=== PATIENT | female | born 1940 | race Caucasian/White ===

== ENCOUNTER → 2020-02-04 10:07 | Outpatient (CLI) | payer MEDICARE, BC, SELFPAY ==
--- NOTE | 2020-02-04 10:13 | CA_ITS ---
APPROVED REPORT Faucets Assembler: Kanika Ziegler RVT Laterality: Bilateral Study Quality: Good Indications: DIZZINESS Risk Factors Hypertension: Doppler Spectral Velocity Analysis ECA (R) 118.10/10.30 cm/s ECA (L) 100.00/9.30 cm/s dICA (R) 56.50/9.60 cm/s dICA (L) 88.60/26.30 cm/s Sukh (R) 39.80/9.00 cm/s Sukh (L) 81.50/16.70 cm/s pICA (R) 69.40/6.90 cm/s pICA (L) 77.70/18.00 cm/s dCCA (R) 97.30/7.50 cm/s dCCA (L) 59.10/13.50 cm/s pCCA (R) 120.80/8.60 cm/s pCCA (L) 90.50/10.30 cm/s Vert (R) 40.50/3.90 cm/s Vert (L) 73.90/20.00 cm/s ICA/CCA 0.71 ICA/CCA 1.50 Findings Study suggests less than 20% stenosis of the right internal cartoid artery. Study suggests 20-49% stenosis of the left internal cartoid artery. Antegrade flow seen bilateral vertebral arteries. Conclusion Study suggests less than 20% stenosis of the right internal cartoid artery. Study suggests 20-49% stenosis of the left internal cartoid artery. Antegrade flow seen bilateral vertebral arteries. Electronically signed by : Frederic Carbone MD 02/04/2020 15:48:07
== END ==
PROVIDERS: PCP Family Medicine; Visit Provider Nurse Practitioner Family
DX: R42 Dizziness and giddiness (principal)
CPT/HCPCS: 93880

== ENCOUNTER → 2020-04-10 14:29 | Outpatient (CLI) | payer MEDICARE, BC, SELFPAY ==
--- NOTE | 2020-04-10 14:34 | XR_ITS ---
PROCEDURE: XR KNEE RT 3V CLINICAL INDICATION: RT KNEE EFFUSION,RT KNEE PAIN COMPARISON: No exams were available for comparison FINDINGS: No fracture or dislocation. No lytic or blastic change. There is normal mineralization. Osteoarthritic changes are present involving all 3 compartments greatest at the patellofemoral joint. Small suprapatellar effusion also suspected. Small bone island noted in the distal femur medially Other findings:None. IMPRESSION: Mild osteoarthritis with small knee joint effusion Dictated by: Frederic Carbone MD 04/11/2020 09:23 Frederic Carbone MD in [place] 04/11/2020 09:23
== END ==
PROVIDERS: PCP Nurse Practitioner Family; Visit Provider Nurse Practitioner Family
DX: M25.561 Pain in right knee (principal); M25.461 Effusion, right knee
CPT/HCPCS: 73562

== ENCOUNTER → 2020-06-08 07:46 | Outpatient (CLI) | payer MEDICARE, BC, SELFPAY ==
--- NOTE | 2020-06-08 | CA_ITS ---
APPROVED REPORT First Assistant Manager: ILIR Study Quality: Good Risk Factors Hypertension Renal Artery Doppler Origin (R) 186.5/ cm/sec Proximal (R) 283.3/ cm/sec Mid (R) 170.5/ cm/sec Distal (R) 183.5/ cm/sec Renal Aorta Ratio (R) 3.25 Segmental A. (R) / cm/sec RI: 0.78 Origin (L) 181.2/ cm/sec Mid (L) 223.0/ cm/sec Distal (L) 163.7/ cm/sec Renal Aorta Ratio (L) 2.87 Segmental A. (L) / cm/sec RI: 0.81 Findings The proximal abdominal aorta is patent without significant stenoses or dilatations. Duplex evaluation demonstrates greater than 60% stenosis of the right renal artery with PSV greater than 180 cm/s and/or Renal/Aortic ratio (RAR) greater than 3.5. Duplex evaluation demonstrates greater than 60% stenosis of the left renal artery with PSV greater than 180 cm/s and/or Renal/Aortic ratio (RAR) greater than 3.5. Conclusion The proximal abdominal aorta is patent without significant stenoses or dilatations. Duplex evaluation demonstrates greater than 60% stenosis of the right renal artery with PSV greater than 180 cm/s and/or Renal/Aortic ratio (RAR) greater than 3.5. Duplex evaluation demonstrates greater than 60% stenosis of the left renal artery with PSV greater than 180 cm/s and/or Renal/Aortic ratio (RAR) greater than 3.5. Electronically signed by : Frederic Carbone MD 06/08/2020 17:33:10
== END ==
PROVIDERS: PCP Nurse Practitioner Family; Visit Provider Nurse Practitioner Family
DX: I10 Essential (primary) hypertension (principal)
CPT/HCPCS: 93976

== ENCOUNTER → 2020-08-22 10:50 | Outpatient (CLI) | payer MEDICARE, BC, SELFPAY | PROVIDERS: PCP Nurse Practitioner Family; Visit Provider Nurse Practitioner Family | DX: Z20.822 Contact with and (suspected) exposure to COVID-19 (principal) | CPT/HCPCS: U0003 ==

== ENCOUNTER → 2020-08-29 09:19 | Outpatient (CLI) | payer MEDICARE, BC, SELFPAY | PROVIDERS: PCP Nurse Practitioner Family; Visit Provider Internal Medicine Cardiovascular Disease | DX: Z01.812 Encounter for preprocedural laboratory examination (principal); Z20.822 Contact with and (suspected) exposure to COVID-19 | CPT/HCPCS: U0003 ==

== ENCOUNTER → 2021-03-12 10:19 | Outpatient (CLI) | payer MEDICARE, BC, SELFPAY | PROVIDERS: PCP Nurse Practitioner Family; Visit Provider Nurse Practitioner | DX: Z20.822 Contact with and (suspected) exposure to COVID-19 (principal) | CPT/HCPCS: C9803; U0003; U0005 ==

== ENCOUNTER → 2021-04-02 12:21 | Outpatient (CLI) | payer MEDICARE, BC, SELFPAY | PROVIDERS: PCP Nurse Practitioner Family; Visit Provider Nurse Practitioner | DX: Z20.822 Contact with and (suspected) exposure to COVID-19 (principal) | CPT/HCPCS: C9803; U0003; U0005 ==

== ENCOUNTER → 2021-05-07 09:58 | Outpatient (CLI) | payer MEDICARE, BC, SELFPAY ==
[2021-05-08 10:36] LABS: Covid-19 Nasal PCR Sendout Lex NOT DETECTED
== END ==
PROVIDERS: PCP Nurse Practitioner Family; Visit Provider Nurse Practitioner
DX: Z20.822 Contact with and (suspected) exposure to COVID-19 (principal)
CPT/HCPCS: C9803; U0004; U0005

== ENCOUNTER → 2021-09-03 11:18 | Outpatient (CLI) | payer MEDICARE, BC, SELFPAY ==
--- NOTE | 2021-09-03 11:23 | XR_ITS ---
FINAL REPORT CLINICAL HISTORY: ACUTE BILATERAL LOW BACK PAIN WITHOUT SCIATICA FINDINGS: 5 views of the lumbar spine were obtained. There is no evidence of fracture or dislocation. There is mild anterolisthesis of L4 on L5. There is moderate degenerative change. There is facet arthropathy in the lower lumbar spine. There is vacuum disc phenomenon at several levels. There are moderate vascular calcifications. IMPRESSION: Degenerative change as above. Reviewed, Interpreted and Dictated by Corey Panda III, MD Transcribed by Ciera Jenkins Authenticated and . [facility]
== END ==
PROVIDERS: PCP Nurse Practitioner Family; Visit Provider Nurse Practitioner Family
DX: M54.50 Low back pain, unspecified (principal)
CPT/HCPCS: 72110

== ENCOUNTER → 2021-09-13 09:41 | Outpatient (CLI) | payer MEDICARE, BC, SELFPAY ==
--- NOTE | 2021-09-13 09:54 | MR_ITS ---
FINAL REPORT CLINICAL HISTORY: LUMBAR DEGENERATIVE DISC DISEASE LOWER BACK PAIN X 4-5 DAYS NO RECENT INJURY FINDINGS: Multiplanar MR imaging of the lumbar spine was performed without contrast. On the sagittal T2-weighted images, disc degeneration is seen throughout. There is mild anterolisthesis of L4 on L5. There is endplate change at several levels. There is no evidence of fracture. No bony mass is identified. The conus has an unremarkable appearance. No significant canal stenosis is identified. There are small cysts in the sacral spinal canal. T12-L1: There is an annular bulge with vertebral osteophytes. There is mild bilateral neural foraminal narrowing. L1-2: An annular bulge is present. There is mild bilateral neural foraminal narrowing. L2-3: There is an annular bulge, facet arthropathy and vertebral osteophytes. There is moderate bilateral neural foraminal narrowing. L3-4: There is an annular bulge with facet arthropathy. There is a small left foraminal disc protrusion. There is mild bilateral neural foraminal narrowing. L4-5: There is an annular bulge, facet arthropathy and vertebral osteophytes. There is a small central disc protrusion. There is a right posterolateral disc protrusion. There is moderate right and mild left neural foraminal narrowing. L5-S1: There is an annular bulge and facet arthropathy. There is mild left neural foraminal narrowing. There is a 5 mm synovial cyst extending anteriorly from the left facet joint into the left neural foramen contacting the left L5 nerve root. This is best seen on series 5, image 48. IMPRESSION: Disc protrusions at L3-L4 and L4-L5 without significant central canal stenosis. Synovial cyst extending anteriorly from the left facet joint at L5-S1 contacts the left L5 nerve root within the left neural foramen. Multiple other levels of degenerative disc disease and neural foraminal narrowing. Reviewed, Interpreted and Dictated by Corey Panda III, MD Transcribed by Celso Goldstein Authenticated and [facility]
== END ==
PROVIDERS: PCP Nurse Practitioner Family; Visit Provider Nurse Practitioner Family
DX: M51.36 Other intervertebral disc degeneration, lumbar region (principal); R93.7 Abnormal findings on diagnostic imaging of other parts of musculoskeletal system
CPT/HCPCS: 72148; 76376

== ENCOUNTER → 2022-01-22 09:39 | Outpatient (POV) | payer MEDICARE, BC, SELFPAY | PROVIDERS: Visit Provider Dermatology | DX: Z00.00 Encounter for general adult medical examination without abnormal findings (principal) ==

== ENCOUNTER → 2022-06-13 14:10 | Outpatient (CLI) | payer MEDICARE, BC, SELFPAY ==
--- NOTE | 2022-06-13 14:14 | CA_ITS ---
FINAL REPORT TECHNIQUE: Color Doppler, duplex Doppler and shetty scale sonography of the bilateral neck arterial vasculature was performed. Velocities were measured in the carotid arteries. Stenosis evaluation based on the validated velocity criteria. CLINICAL HISTORY: DIZZINESS,HTN,HLD FINDINGS: The peak systolic velocity of the right common carotid artery is 166 cm/s. The peak systolic velocity of the right internal carotid artery is 81 cm/s and end diastolic velocity 13 cm/s. The ICA/CCA ratio is 0.49. A mild amount of plaque is present. The right external carotid artery is patent. The right vertebral artery is patent with antegrade flow. The peak systolic velocity of the left common carotid artery is 73 cm/s. The peak systolic velocity of the left internal carotid artery is 85 cm/s and end diastolic velocity 19 cm/s. The ICA/CCA ratio is 1.2. A mild amount of plaque is present. The left external carotid artery is patent.The left vertebral artery is patent with antegrade flow. IMPRESSION: Less than 50% bilateral carotid stenosis. Bilateral patent vertebral arteries with antegrade flow. If indicated, CTA or MRA could further evaluate. Reviewed, Interpreted and Dictated by Corey Panda III, MD Transcribed by Ciera Jenkins Authenticated and . [facility]
== END ==
PROVIDERS: PCP Nurse Practitioner Family; Visit Provider Nurse Practitioner Family
DX: R42 Dizziness and giddiness (principal)
CPT/HCPCS: 93880

== ENCOUNTER 2022-11-30 07:59 | Inpatient (IN) | payer MEDICARE, BC, SELFPAY ==
[2022-11-30] VITALS (16 sets, daily range): BP systolic 112–180; BP diastolic 66–104; PULSE 96–157; RESP 16–22; TEMP 36.6–36.9; O2SAT 91–96; BMI 33.7; BMI 33.5
--- NOTE | 2022-11-30 08:07 | PC.NURSE ---
dr sierra at bedside
--- NOTE | 2022-11-30 08:08 | ECG_ITS ---
APPROVED REPORT Exam: Resting ECG HR:161 bpm ECG Measurements Heart Rate 161 AXES QRSd 141 QRS 87 QT 264 T 17 QTc 353 Conclusion ATRIAL FIBRILLATION WITH RAPID VENTRICULAR RESPONSE RIGHT BUNDLE BRANCH BLOCK [120+ ms QRS DURATION, UPRIGHT V1, 40+ ms S IN I/aVL/V4/V5/V6] SEPTAL MYOCARDIAL INFARCTION , OF INDETERMINATE AGE [40+ ms Q WAVE IN V1/V2] CRITICAL TEST RESULT UNCONFIRMED REPORT Electronically signed by : Vlad García MD 12/02/2022 15:54:20
--- NOTE | 2022-11-30 08:10 | XR_ITS ---
PROCEDURE INFORMATION: Exam: XR Chest Exam date and time: 11/30/2022 8:11 AM Age: 82 years old Clinical indication: Shortness of breath; Additional info: SOB TECHNIQUE: Imaging protocol: Radiologic exam of the chest. Views: 1 view. COMPARISON: CR XR CHEST 2V 12/02/2018 6:18 PM FINDINGS: Lungs: Mild Opacities in both bases may represent atelectasis or pneumonia.. Pleural spaces: Unremarkable. No pleural effusion. No pneumothorax. Heart/Mediastinum: Unremarkable. No cardiomegaly. Bones/joints: Unremarkable. IMPRESSION: Mild Opacities in both bases may represent atelectasis or pneumonia..
--- NOTE | 2022-11-30 08:12 | HMH.EDGENADL ---
Discharge Plan Disposition Patient Disposition: Admitted Condition: Fair Chief Complaint: Shortness of Breath/Dyspnea Prescriptions Prescriptions: No Action carvedilol 12.5 MG tablet 12.5 mg PO BID amlodipine 5 MG tablet 5 mg PO DAILY rivaroxaban 20 MG tablet 20 mg PO DAILY Referrals Follow up/Referrals: Hina Evans APRN [Primary Care Provider] - See instructions Clinical Impressions Clinical Impression: Atrial fibrillation with rapid ventricular response, Acute dyspnea Discharge ED Provider: Martín Harry General Adult HPI General Chief complaint: Shortness of Breath/Dyspnea Stated complaint: SOA Time Seen by Provider: 11/30/22 08:00 History of Present Illness HPI narrative: Patient is a 82-year-old female with past medical history of atrial fibrillation who presents emergency department for evaluation of shortness of breath. Patient states that she has had progressive shortness of breath over the last 1 to 2 weeks. Over the last week she was diagnosed with a urinary tract infection for which she was prescribed Macrobid and has been compliant. Patient typically takes metoprolol daily, last administration yesterday afternoon. Patient did not rest at all last night and due to progressive symptoms presents here for continued evaluation. Patient was recently discontinued on her rivaroxaban due to bleeding hemorrhoids. Patient denies chest pain, abdominal pain, other acute complaints at this time. Related Data Home Medications Medication Instructions Recorded Confirmed amlodipine 5 mg tablet 5 mg PO DAILY heart 12/02/18 12/02/18 carvedilol 12.5 mg tablet 12.5 mg PO BID heart 12/02/18 12/02/18 rivaroxaban 20 mg tablet 20 mg PO DAILY afib 12/02/18 12/02/18 Allergies Allergy/AdvReac Type Severity Reaction Status Date / Time No Known Allergies Allergy Verified 12/02/18 18:02 [facility] Disclaimer: The information contained in this section may have been updated after the patient was seen, as this information can be updated by other users. Social History Smoking Status: Never smoker alcohol intake: never current occupational status: retired Travel in the last 8 weeks: None ROS Obtained: Yes Systems reviewed as appropriate & no additional complaints except as documented Physical Exam General General appearance: alert and in distress Head Head exam: atraumatic and normocephalic Eye Eye exam: Present PERRL and EOMI ENT ENT exam: Present mucous membranes moist Neck Neck exam: Present normal inspection Chest Chest inspection: Present normal inspection and symmetric chest wall rise Respiratory Respiratory exam: Present normal lung sounds bilaterally, respiratory distress and other (Tachypnea) Cardiovascular Cardiovascular exam: Present tachycardia, irregular rhythm and other (1+ pitting edema bilateral lower extremities mid milner) Abdominal Exam Abdominal exam: Present soft; Absent tenderness Extremities Exam Extremities exam: Present normal inspection Neurological Exam Neurological exam: Present alert Psychiatric Psychiatric exam: Present anxious Skin Skin exam: Present warm and dry Medical Decision Making Luis Fernando Inquiry Pt receiving controlled substance: No Vital Signs: 11/30/22 08:00 11/30/22 08:22 Temperature 98.0 F Temperature Source Oral Pulse Rate 108 H Pulse Rate [Apical] 157 H Respiratory Rate 22 Blood Pressure 135/66 Blood Pressure [Right Arm] 180/90 H Blood Pressure Mean 89 Blood Pressure Mean [Right Arm] 120 Blood Pressure Source [Right Arm] Manual Cuff/ Palpation Blood Pressure Position [Right Arm] Sitting 02 Sat by Pulse Oximetry 93 L 96 Oxygen Delivery Method Room Air Nasal Cannula Oxygen Flow Rate (LPM) 2 Lab Data Lab Results 11/30/22 08:09: WBC 13.2 H, RBC 5.08, Hgb 14.6, Hct 45.1, MCV 88.8, MCH 28.7, MCHC 32.3, RDW 14.2, Plt Count 300, MPV 8.8, Neut % (Auto) 73.1, Lymph % (Auto) 19.4, [place] % (Auto) 6.
--- NOTE | 2022-11-30 08:14 | PC.NURSE ---
PHARMACY NOTIFIED OF DILTIAZEM ORDERS
--- NOTE | 2022-11-30 08:16 | PC.NURSE ---
XR AT BEDSIDE
[2022-11-30 08:25] LABS: Basophils # 0.1 K/mm3 (0-0.2); Basophils % 0.4 % (0.1-2.0); Eosinophils # 0.1 K/mm3 (0.0-0.4); Eosinophils % 0.9 % (0.1-12.0); Hematocrit 45.1 % (37.0-47.0); Hemoglobin 14.6 g/dL (12.2-16.2); Lymphocytes # 2.6 K/mm3 (0.7-4.5); Lymphocytes % 19.4 % (10-50); Mean Corpuscular HGB Conc 32.3 g/dL (31.8-35.4); Mean Corpuscular Hemoglobin 28.7 pg (27.0-31.2); Mean Corpuscular Volume 88.8 fl (81-99); Mean Platelet Volume 8.8 fl (7.4-10.4); Monocytes # 0.8 K/mm3 (0.1-1.0); Monocytes % 6.1 % (1.7-9.3); Neutrophils # 9.7 K/mm3 (1.8-7.8); Neutrophils % 73.1 % (37.0-80.0); Platelet Count 300 K/mm3 (142-424); Red Blood Count 5.08 M/mm3 (4.20-5.40); Red Cell Distribution Width 14.2 % (11.5-17.5); White Blood Count 13.2 K/mm3 (4.8-10.8)
[2022-11-30 08:29] LABS: Alanine Aminotransferase 46 U/L (12-78); Albumin Level 4.4 g/dl (3.5-5.0); Albumin/Globulin Ratio 1.1 (1.1-1.8); Alkaline Phosphatase 134 U/L (38-126); Anion Gap 16.4 mEq/L (5-15); Aspartate Amino Transferase 44 U/L (14-36); Bilirubin,Total 0.8 mg/dl (0.2-1.3); Blood Urea Nitrogen 19 mg/dl (7-17); Calcium 9.5 mg/dl (8.4-10.2); Carbon Dioxide 24 mmol/L (22.0-30.0); Chloride 99 mmol/L (98-107); Creatinine Clearance Estimated 56 mL/min (50-200); Estimated Glomerular Filt Rate 60 ml/min (>60); GFR (African American) 73 ML/MIN (>60); Globulin 3.9 g/dL (1.3-3.2); Glucose 176 mg/dl (74-100); Potassium 3.4 mmoL/L (3.5-5.1); Sodium 136 mmol/L (136-145); Total Protein,Serum 8.3 g/dl (6.3-8.2)
--- NOTE | 2022-11-30 08:29 | PC.NURSE ---
SPOKE WITH DR PATIÑO, TITRATE TO KEEP HR LESS THAN 110, CURRENTLY HR 100
[2022-11-30 08:30] LABS: Magnesium 1.8 mg/dl (1.6-2.3)
[2022-11-30 08:32] LABS: VBG Base Excess -3.4 mmol/L (-2.4-2.3); VBG HCO3 21.8 mmol/L (23-30); VBG Oxygen Saturation 82.7 % (50-70); VBG PCO2 38.2 mmol/L (35-51); VBG PH 7.38 mmol/L (7.31-7.41); VBG PO2 49.1 mmol/L (28-40)
[2022-11-30 08:47] LABS: NT Pro Brain Natriuretic Pep. 2710 pg/mL (0-450)
--- NOTE | 2022-11-30 08:49 | PC.NURSE ---
VERIFIED WITH OZZY IN PHARMACY, ROCEPHIN IS COMPATIBLE WITH DILTIAZEM
[2022-11-30 08:52] LABS: Troponin I < 0.01 ng/ml (0.00-0.034)
--- NOTE | 2022-11-30 08:54 | PC.NURSE ---
DR JIM PAGED AT THIS TIME
[2022-11-30 08:57] LABS: Lactic Acid 2.8 mmol/L (0.7-2.1)
--- NOTE | 2022-11-30 09:00 | PC.NURSE ---
DR PATIÑO SPEAKING WITH DR JIM
--- NOTE | 2022-11-30 09:03 | PC.NURSE ---
DR PATIÑO SPEAKING WITH DR BUTLER FOR ADMISSION
--- NOTE | 2022-11-30 09:05 | EXP.HP ---
History of Present Illness *Admission Date: 11/30/22 *Reason for visit:: shortness of breath *History of present illness: Ms. Girard is a 82 year old female with a past medical history of atrial fibrillation, hypertension and obesity who presented to the ED with 1 week of shortness of breath. In the ER she was found to be in afib with RVR with HR 150-170. Cardizem drip was started but then changed to Amiodarone drip after Cardiology was contacted. Her Precision Assembler is Dr. Arpit Rose at [facility]. She was taking both metoprolol and diltiazem but two weeks ago her diltiazem was discontinued and the dose of her metoprolol was not changed. She states that her Xarelto was discontinued 2 days ago because she had hemorrhoidal bleeding. She denies cough, chest pain, palpitations, lightheadedness, blurry vision, fever, chills, abdominal pain, nausea, vomiting and dysuria. [facility] Disclaimer: The information contained in this section may have been updated after the patient was seen, as this information can be updated by other users. Medical History (Updated 11/30/22 @ 13:21 by Isai Torres MD) Afib Hyperlipidemia Hypertension Surgical History (Updated 11/30/22 @ 13:06 by Bel Savage RN) H/O: hysterectomy History of colon surgery Hx of cataract surgery Social History (Updated 11/30/22 @ 13:06 by Bel Savage RN) Smoking Status: Never smoker alcohol intake: never current occupational status: retired Travel in the last 8 weeks: None Review of Systems Review of Systems Review of systems:: pertinent systems reviewed and negative unless documented below *Cardiovascular Cardiovascular: Reports dyspnea *Respiratory Respiratory: Reports dyspnea *Gastrointestinal Gastrointestinal: Reports hematochezia Meds Home Medications and Allergies Home Medications Medication Instructions Recorded Confirmed Type hydrochlorothiazide 12.5 mg capsule 12.5 mg PO DAILY Fluid 11/30/22 11/30/22 History metoprolol succinate 100 mg 100 mg PO DAILY heart rate 11/30/22 11/30/22 History tablet,extended release 24 hr nitrofurantoin macrocrystal 100 mg 100 mg PO DAILY antibiotic 11/30/22 11/30/22 History capsule pravastatin 20 mg tablet 20 mg PO DAILY cholsterol 11/30/22 11/30/22 History New Prescriptions to Start Prescriptions: Allergies Allergy/AdvReac Type Severity Reaction Status Date / Time No Known Allergies Allergy Verified 12/02/18 18:02 Exam Data for Last 24 hours Vital signs and Labs for Last 24 Hours: Temp Pulse Resp BP Pulse Ox O2 Del Method O2 Flow Rate 98.0 F 108 H 22 135/66 96 Nasal Cannula 2 11/30/22 08:00 11/30/22 08:22 11/30/22 08:00 11/30/22 08:22 11/30/22 08:22 11/30/22 08:22 11/30/22 08:22 Laboratory Results - last 24 hr 11/30/22 08:09: WBC 13.2 H, RBC 5.08, Hgb 14.6, Hct 45.1, MCV 88.8, MCH 28.7, MCHC 32.3, RDW 14.2, Plt Count 300, MPV 8.8, Neut % (Auto) 73.1, Lymph % (Auto) 19.4, [place] % (Auto) 6.1, Eos % (Auto) 0.9, Baso % (Auto) 0.4, Neut # (Auto) 9.7 H, Lymph # (Auto) 2.6, [place] # (Auto) 0.8, Eos # (Auto) 0.1, Baso # (Auto) 0.1, Sodium 136, Potassium 3.4 L, Chloride 99, Carbon Dioxide 24, Anion Gap 16.4 H, BUN 19 H, Creatinine 0.90, Estimated Creat Clear 56, Estimated GFR 60, Est GFR ( Amer) 73, Glucose 176 H, Lactate 2.8 H, Calcium 9.5, Magnesium 1.8, Total Bilirubin 0.8, AST 44 H, ALT 46, Alkaline Phosphatase 134 H, Troponin I < 0.01, NT-Pro-B Natriuret Pep 2710 H, Total Protein 8.3 H, Albumin 4.4, Globulin 3.9 H, Albumin/Globulin Ratio 1.1 11/30/22 08:23: VBG pH 7.38, VBG pCO2 38.2, VBG pO2 49.1 H, VBG HCO3 21.8 L, VBG Total CO2 23.0, VBG O2 Saturation 82.7 H, VBG Base Excess -3.4 L I & O for Last 24 hours: Intake & Output 11/27/22 11/28/22 11/29/22 11/30/22 23:59 23:59 23:59 23:59 Weight 78.471 kg Constitutional Constitutional: no acute distress *Routine HEENT Exam Head: Present normocephalic Eye: Present EOMI and PERRL ENT: Pres
--- NOTE | 2022-11-30 09:05 | PC.NURSE ---
ROLL MACHINE OPERATOR NOTIFIED OF ADMISSION
--- NOTE | 2022-11-30 09:11 | PC.NURSE ---
Pt assigned to room 219, Stepdown for AFIB w/RVR to the hospitalist.
--- NOTE | 2022-11-30 09:11 | PC.NURSE ---
PT MEDICATED PER EMAR, UPDATED ON POC. NO NEEDS AT THIS TIME. CALL LIGHT IN REACH. AT BEDSIDE
[2022-11-30 09:14] LABS: Coronavirus 19, PCR Not Detected (NotDetected); Influenza A, PCR Not Detected (NotDetected); Influenza B, PCR Not Detected (NotDetected)
--- NOTE | 2022-11-30 09:20 | PC.NURSE ---
Dr. Harry at BS to update pt/
--- NOTE | 2022-11-30 09:20 | PC.NURSE ---
DR PATIÑO AT BEDSIDE TO UPDATE PT
--- NOTE | 2022-11-30 09:36 | PC.NURSE ---
charge nurse Nikita is taking pt via stretcher to [facility] room 219
--- NOTE | 2022-11-30 09:41 | PC.NURSE ---
arrived by w/c from ED
[2022-11-30 12:17] LABS: Reflex Lactic Add Lactic Reflex
[2022-11-30 12:24] LABS: Troponin I < 0.01 ng/ml (0.00-0.034)
[2022-11-30 14:56] LABS: Lactic Acid Follow Up (RFLX 1) 1.3 mmol/L (0.7-2.1)
--- NOTE | 2022-11-30 15:01 | PC.NURSE ---
[address] spencer, pt requesting med for headache. 1115 admin pt tylenol. ordered 1000mg dose. pt states that she only wants to take 1 tablet. states that when she takes that much at home it makes her really sleepy. notified.
[2022-11-30 15:07] LABS: Troponin I < 0.01 ng/ml (0.00-0.034)
[2022-11-30 16:09] LABS: Microscopic, Urine URINE MICROSCOPIC (MICROSCOPIC)
[2022-11-30 17:01] LABS: Appearance,Urine Clear (Clear); Bilirubin,Urine Negative (Negative); Blood, Urine Negative (Negative); Color,Urine Yellow (Yellow); Glucose,Urine (UA) Negative (Negative); Ketones,Urine Negative (Negative); Leukocyte Esterase,Urine Trace (Negative); Nitrate,Urine Negative (Negative); Protein,Urine Negative (Negative); Urobilinogen,Urine 0.2 EU/dl (0.2)
--- NOTE | 2022-11-30 17:37 | PC.NURSE ---
notified dr Torres at this time that pt ambulated to the restroom and has since had a hr in that 120-140 range. pt is also hypertensive. initially upon return to bed her bp was 195/112. pt was soa and anxious. pt was able to calm herself and bp decreased to the 160's sys range. states he will order metoprolol 50 tartrate
--- NOTE | 2022-11-30 17:59 | PC.NURSE ---
184 amiodarone drip decreased to 16.7 ml per order
--- NOTE | 2022-11-30 23:27 | CT_ITS ---
PROCEDURE INFORMATION: Exam: CTA Chest With Contrast Exam date and time: 12/01/2022 12:17 AM Age: 82 years old Clinical indication: Shortness of breath; Additional info: SOB TECHNIQUE: Imaging protocol: Computed tomographic angiography of the chest with contrast. Exam focused on the arteries. 3D rendering (Not supervised by radiologist): MIP and/or 3D reconstructed images were created by the technologist. Radiation optimization: All CT scans at this facility use at least one of these dose optimization techniques: automated exposure control; mA and/or kV adjustment per patient size (includes targeted exams where dose is matched to clinical indication); or iterative reconstruction. Contrast material: ISOVUE; Contrast volume: 70 ml; Contrast route: INTRAVENOUS (IV); REPORTING DATA: Count of CT and Cardiac NM exams in prior 12 months: This patient has received 0 known CTs and 0 known cardiac nuclear medicine studies in the 12 months prior to the current study. COMPARISON: CR XR CHEST PORTABLE 11/30/2022 8:11 AM FINDINGS: Pulmonary arteries: No central or segmental pulmonary arterial intraluminal filling identified. Aorta: Atherosclerotic calcification of thoracic aorta. No aortic dissection. No aortic aneurysm. Lungs: Compressive subsegmental atelectasis. Scattered calcified perihilar and mediastinal lymph nodes without lymphadenopathy. Interstitial prominence with pulmonary vasculature redistribution. Pleural spaces: Moderate bilateral pleural effusions. Heart: Unremarkable. No cardiomegaly. No pericardial effusion. Coronary arteries: Mild atherosclerotic calcification of coronary arteries. Lymph nodes: Scattered calcified mediastinal and perihilar lymph nodes without lymphadenopathy. Liver: Fatty liver infiltration. Bones/joints: Unremarkable. No acute fracture. Soft tissues: Unremarkable. IMPRESSION: 1. No central or segmental pulmonary embolism by CT criteria. 2. Bilateral pleural effusions with pulmonary vasculature redistribution suspicious for sequela of pulmonary edema/CHF. 3. Fatty liver infiltration.
[2022-12-01] VITALS (22 sets, daily range): BP systolic 128–174; BP diastolic 68–107; PULSE 86–139; RESP 15–29; TEMP 36.2–36.8; O2SAT 91–99; BMI 34.7
--- NOTE | 2022-12-01 01:05 | PC.NURSE ---
AT APPROX. 2315 PT'S IV THAT HAD THE AMIO DRIP INFILTRATED. INFUSION SWITCHED TO SECONDARY IV AT THAT TIME AND INFILTRATED IV WAS PULLED AND WRAPPED. MYNOR SHAW CALLED ON LICENSE OF [facility] ON RECOMMENDATIONS FOR INFILTRATION. KANDY WITH PHARMACY STATED THAT THE INFILTRATION SHOULD BE FINE AND TO DO WARM COMPRESSES AND ELEVATE EFFECTED EXTREMITY.
--- NOTE | 2022-12-01 02:06 | PC.NURSE ---
rapid response called on pt. called at 0155 and updated on pt status. son called at 0203 and updated on pt states.
[2022-12-01 02:11] LABS: ABG Base Excess -5.5 mmol/L (-2.4-2.3); ABG HCO3 19.3 mmhg (22.0-26.0); ABG Oxygen Saturation 99 % (90-100); ABG PCO2 31.7 mmhg (35.0-45.0); ABG PO2 133.1 mmhg (80-100); ABG TCO2 20.3 mmhg (23-27)
[2022-12-01 02:12] LABS: Allen's Test Y; Oxygen 50 %; Source Right Radial
--- NOTE | 2022-12-01 02:15 | EXP.CCNOTE ---
Critical Care Event Note Summary Code activated: No Narrative: 82-year-old female with history of atrial fibrillation, admitted less than 24 hours prior with A-fib RVR and shortness of breath, placed on amiodarone infusion for rate control. Currently being treated for UTI though is not febrile or hypotensive. Patient had significant worsening of shortness of breath and tachycardia and so rapid response was called. On my initial evaluation patient was hypertensive with blood pressures in the 160s over 100s, A-fib with RVR with rates in the 130s to 140s, significantly dyspneic, with wheezing wheezing and prolonged expiratory phase bilaterally. Patient not febrile. Patient on a nonrebreather. Interactive discussion had with hospitalist Benjamin at bedside. Just prior to my arrival, patient had been evaluated with CTA chest for possible PE given worsening hypoxia and tachycardia. On my interpretation of imaging, patient has moderate bilateral pleural effusions without evidence of PE, does appear to have pulmonary congestion. Patient's respiratory status had not improved with recent DuoNebs. Bedside ultrasound performed including lung ultrasound and limited echo. Patient has diffuse B-lines in all lung nowak except in the posterior bases where she has moderate effusions bilaterally. They are likely chronic and do not appear to be enough to cause hemodynamic or respiratory instability. Patient's baseline EF is unknown to me. It is markedly low on bedside evaluation at this time. No evidence of focal wall motion abnormality, no pericardial effusion. Taken together, it is my impression that the patient's acute change appears to be flash pulmonary edema and acute heart failure with acute hypoxic respiratory failure in the setting of A-fib RVR. Patient was placed on BiPAP with significant improvement in dyspnea as well as improvement in tachycardia. Patient was given 2 pushes of IV Lopressor as well as 80 mg of IV Lasix. I recommended afterload reduction with nitroglycerin IV infusion. I had a discussion with patient regarding her condition. She is in serious condition. She reports that she is DNI but would like chest compressions if indicated. I discussed with her that if BiPAP failed we would have no further options and she remained DNI. This case had a high probability of a clinically significant, sudden, or life threatening deterioration of this patient's condition which required my full and direct attention, intervention and personal management. Procedures: Patient initiated on BiPAP for active management of of acute hypoxic respiratory failure and flash pulmonary edema. Limited lung ultrasound A focused ultrasound exam of the pleural spaces was performed to evaluate for pneumothorax, pulmonary edema, pleural effusion and/or consolidation. The ultrasound was performed with the following indications: Hypoxia, shortness of breath Identified structures: Bilateral thoracic cavities were examined. Findings: Lung sliding: -Present bilaterally B-lines: -Present diffusely in all lung nowak Pleural effusion: -Moderate effusion noted in bilateral posterior inferior lung field Consolidation: -Absent bilaterally Impression: Pulmonary edema and moderate bilateral pleural effusions Images were saved to permanent archive The study was technically adequate [id number] [id number] This study was performed by me, and I personally interpreted all images/videos. Based on my clinical judgement, these images were adequate and did not necessitate further imaging. Limited cardiac ultrasound Indication: Shortness of breath Views obtained: Parasternal long axis, parasternal short axis, subxiphoid Findings: Irregular rate, concentric hypertrophy, LV dilated with markedly depressed EF, no focal wall motion abnormality, no pericardial effusion Impression: Irregular rate, concentric hypertrophy, LV dilated w
--- NOTE | 2022-12-01 02:17 | PC.NURSE ---
RAPID RESPONSE CALLED AT 0134- Pt SOA at this time. BP 180s/100, HR 140's, Labored breathing, wheezing and crackles noted. TEAM ARRIVED AT 0136 AND NON-REBREATHER PLACED ON PT. FEATHER BALER and ED MD at bedside. 0140 metoprolol 5mg 0145 80 of lasix iv 0150 bipap placed on pt 0152 metoprolol 5mg 0203 nitro gtt started at 5mcg/min PT CURRENTLY SITTING UP IN BED ON BIPAP RR 29, BP IS 137/87, HR 120-130'S PT STATES THAT SHE IS FEELING MUCH BETTER, AT BEDSIDE
--- NOTE | 2022-12-01 02:53 | EXP.EVENT.NO ---
Attempted to contact Dr. Blakely twice to updated him on pt status of flash pulmonary edema. Unable to reach him. Spoke with Dr. Meehan who is aware of change and interventions that took place for patient. Pt is now resting comfortable and is in no acute distress.
--- NOTE | 2022-12-01 04:25 | EXP.EVENT.NO ---
Dr. Bennett called back. Requesting 40 mg lasix TID.
--- NOTE | 2022-12-01 04:47 | PC.NURSE ---
16 fr vargas catheter anchored at this time per Celina CLEMENTE. Pt tolerated well. Draining clear yellow urine. Sterile urine specimen obtained and sent to lab.
[2022-12-01 07:12] LABS: Basophils % 0.3 % (0.1-2.0); Eosinophils # 0.1 K/mm3 (0.0-0.4); Eosinophils % 0.5 % (0.1-12.0); Hematocrit 44.2 % (37.0-47.0); Hemoglobin 14.5 g/dL (12.2-16.2); Lymphocytes # 1.5 K/mm3 (0.7-4.5); Mean Corpuscular HGB Conc 32.7 g/dL (31.8-35.4); Mean Corpuscular Volume 88.5 fl (81-99); Mean Platelet Volume 9.3 fl (7.4-10.4); Monocytes # 0.8 K/mm3 (0.1-1.0); Monocytes % 5.7 % (1.7-9.3); Neutrophils # 11.4 K/mm3 (1.8-7.8); Neutrophils % 82.5 % (37.0-80.0); Platelet Count 249 K/mm3 (142-424); Red Blood Count 4.99 M/mm3 (4.20-5.40); Red Cell Distribution Width 14.4 % (11.5-17.5); White Blood Count 13.8 K/mm3 (4.8-10.8)
[2022-12-01 07:21] LABS: Anion Gap 16.3 mEq/L (5-15); Blood Urea Nitrogen 16 mg/dl (7-17); Calcium 8.9 mg/dl (8.4-10.2); Carbon Dioxide 24 mmol/L (22.0-30.0); Chloride 100 mmol/L (98-107); Creatinine Clearance Estimated 57 mL/min (50-200); Estimated Glomerular Filt Rate 81 ml/min (>60); GFR (African American) 97 ML/MIN (>60); Glucose 144 mg/dl (74-100); Potassium 3.3 mmoL/L (3.5-5.1); Sodium 137 mmol/L (136-145)
--- NOTE | 2022-12-01 07:24 | XR_ITS ---
PROCEDURE INFORMATION: Exam: XR Chest Exam date and time: 12/01/2022 7:46 AM Age: 82 years old Clinical indication: Shortness of breath; Patient HX: Chf exac TECHNIQUE: Imaging protocol: Radiologic exam of the chest. Views: 1 view. COMPARISON: CR XR CHEST PORTABLE 11/30/2022 8:11 AM FINDINGS: Lungs: Opacities in both bases may represent atelectasis or pneumonia.. Pleural spaces: There may be a mild left pleural effusion. No pneumothorax. Heart/Mediastinum: Unremarkable. No cardiomegaly. Bones/joints: Unremarkable. IMPRESSION: Opacities in both bases may represent atelectasis or pneumonia..
[2022-12-01 07:53] LABS: NT Pro Brain Natriuretic Pep. 2810 pg/mL (0-450)
--- NOTE | 2022-12-01 09:35 | EXP.PN ---
Subjective *Date: 12/01/22 *Time: 09:35 Interval history: Overnight the patient developed respiratory distress and HR jumped to above 150. CTA chest was ordered revealing pulmonary edema. The patient was placed on a CPAP and a nitro drip and give iv lasix 80mg and a vargas catheter was inserted. Cardiology was contacted and recommended continuing diuresis with Lasix PO 40mg TID. The patient's nitro drip was weaned off and currently she is breathing much more comfortably saturating in the upper 90s on 2L NC. HR is in the 120-130 range. She is still on the amiodarone drip and receiving PO metoprolol. Exam Data for Last 24 hours Vital signs and Labs for Last 24 Hours: Temp Pulse Resp BP Pulse Ox O2 Del Method O2 Flow Rate 97.2 F L 107 H 24 161/68 H 92 L Nasal Cannula 2 12/01/22 07:53 12/01/22 08:00 12/01/22 07:07 12/01/22 07:07 12/01/22 08:00 12/01/22 09:00 12/01/22 09:00 FiO2 50 12/01/22 06:00 Laboratory Results - last 24 hr 11/30/22 09:07: SARS-CoV-2 (PCR) Not detected, Influenza A Untype (PCR) Not detected, Influenza Type B (PCR) Not detected 11/30/22 10:40: Troponin I < 0.01 11/30/22 13:20: Lactate 1.3, Troponin I < 0.01 11/30/22 16:03: Urine Color Yellow, Urine Appearance Clear, Urine pH 6.0, Ur Specific [place] 1.010, Urine Protein Negative, Urine Glucose (UA) Negative, Urine Ketones Negative, Urine Blood Negative, Urine Nitrate Negative, Urine Bilirubin Negative, Urine Urobilinogen 0.2, Ur Leukocyte Esterase Trace A, Urine RBC None, Urine WBC 3-5, Ur Squamous Epith Cells 5-10 12/01/22 02:09: Specimen Source Right radial, O2 % 50, ABG pH 7.40, ABG pCO2 31.7 L, ABG pO2 133.1 H, ABG HCO3 19.3 L, ABG Total CO2 20.3 L, ABG O2 Saturation 99, ABG Base Excess -5.5 L, Frederic Test Y 12/01/22 06:33: WBC 13.8 H, RBC 4.99, Hgb 14.5, Hct 44.2, MCV 88.5, MCH 29.0, MCHC 32.7, RDW 14.4, Plt Count 249, MPV 9.3, Neut % (Auto) 82.5 H, Lymph % (Auto) 11.0, [place] % (Auto) 5.7, Eos % (Auto) 0.5, Baso % (Auto) 0.3, Neut # (Auto) 11.4 H, Lymph # (Auto) 1.5, [place] # (Auto) 0.8, Eos # (Auto) 0.1, Baso # (Auto) 0.0, Sodium 137, Potassium 3.3 L, Chloride 100, Carbon Dioxide 24, Anion Gap 16.3 H, BUN 16, Creatinine 0.70 D, Estimated Creat Clear 57, Estimated GFR 81, Est GFR ( Amer) 97 D, Glucose 144 H, Calcium 8.9, NT-Pro-B Natriuret Pep 2810 H I & O for Last 24 hours: Intake & Output 11/28/22 11/29/22 11/30/22 12/01/22 23:59 23:59 23:59 23:59 Intake Total 939 / 939 121.425 / 121.425 Output Total 800 / 800 Balance 139 / 139 121.425 / 121.425 Weight 77.519 kg 80.286 kg Constitutional Constitutional: no acute distress *Routine HEENT Exam Head: Present normocephalic Eye: Present EOMI and PERRL ENT: Present mucous membranes moist *Routine Neck Exam Neck: Present supple; Absent lymphadenopathy *Routine Respiratory Exam Respiratory: Present able to speak in complete sentences Comments: bibasilar inspiratory crackles *Routine Cardiovascular Exam Cardiovascular: Present tachycardia and irregularly irregular *Routine Abdominal Exam Abdominal: Present soft and normoactive bowel sounds; Absent tenderness *Routine Extremities Exam Extremities: Absent cyanosis, clubbing or edema *Routine Skin Exam Skin: Present warm; Absent rash *Routine Neurological Exam Neurological: Present alert and oriented X3 Assessment and Plan *Assessment and plan (1) Hypertension: Status: Acute Category: Medical Code(s): I10 - Essential (primary) hypertension (2) Atrial fibrillation with rapid ventricular response: Status: Acute Category: Medical Code(s): I48.91 - Unspecified atrial fibrillation (3) Acute dyspnea: Status: Acute Category: Medical Code(s): R06.00 - Dyspnea, unspecified (4) GI bleeding: Status: Acute Category: Medical Code(s): K92.2 - Gastrointestinal hemorrhage, unspecified (5) Obesity: Status: Acute Category: Medical Code(s):
--- NOTE | 2022-12-01 09:48 | PC.NURSE ---
Addendum entered by Kimber Snell RN 12/01/22 10:02: 1000 continue amio drip per dr Blakely Original Note: [id number] Blakely to inquire if md wants to continue amiodarone drip or change to po dose.
--- NOTE | 2022-12-01 14:06 | PC.NURSE ---
Spoke with Dr Torres face to face. ok to transfer pt out of ICU to Stepdown 1400
--- NOTE | 2022-12-01 14:06 | PC.NURSE ---
[address] Blakely. continue Amiodarone drip. give 15mg iv bolus of dilt and start dilt drip. titrate for heart rate less than 100. change lovenox to therapeutic dose.
[2022-12-02] VITALS (25 sets, daily range): BP systolic 97–162; BP diastolic 48–93; PULSE 70–133; RESP 13–21; TEMP 36.4–36.8; O2SAT 92–97; BMI 35.1
--- NOTE | 2022-12-02 03:33 | PC.NURSE ---
Cardizem drip turned off at 0210 per CARTER Barraza.
[2022-12-02 07:53] LABS: Basophils % 0.3 % (0.1-2.0); Eosinophils # 0.2 K/mm3 (0.0-0.4); Eosinophils % 1.5 % (0.1-12.0); Hematocrit 35.2 % (37.0-47.0); Hemoglobin 13.2 g/dL (12.2-16.2); Mean Corpuscular HGB Conc 37.6 g/dL (31.8-35.4); Mean Corpuscular Hemoglobin 33.2 pg (27.0-31.2); Mean Corpuscular Volume 88.2 fl (81-99); Mean Platelet Volume 9.8 fl (7.4-10.4); Monocytes # 1.1 K/mm3 (0.1-1.0); Monocytes % 8.6 % (1.7-9.3); Neutrophils # 9.1 K/mm3 (1.8-7.8); Neutrophils % 73.5 % (37.0-80.0); Platelet Count 205 K/mm3 (142-424); Red Blood Count 3.99 M/mm3 (4.20-5.40); Red Cell Distribution Width 14.4 % (11.5-17.5); White Blood Count 12.4 K/mm3 (4.8-10.8)
[2022-12-02 08:06] LABS: Anion Gap 12.9 mEq/L (5-15); Blood Urea Nitrogen 17 mg/dl (7-17); Calcium 8.7 mg/dl (8.4-10.2); Carbon Dioxide 29 mmol/L (22.0-30.0); Chloride 98 mmol/L (98-107); Creatinine Clearance Estimated 58 mL/min (50-200); Estimated Glomerular Filt Rate 69 ml/min (>60); GFR (African American) 84 ML/MIN (>60); Glucose 115 mg/dl (74-100); Sodium 137 mmol/L (136-145)
[2022-12-02 08:10] LABS: Potassium 2.9 mmoL/L (3.5-5.1)
--- NOTE | 2022-12-02 08:45 | PC.NURSE ---
notified MD Torres that pt's potassium 2.9, to order replacement potassium
--- NOTE | 2022-12-02 11:30 | EXP.PN ---
Subjective *Date: 12/02/22 *Time: 14:25 Interval history: No acute events overnight. The patient feels less short of breath. She denies pain and overall feels to be doing well. Exam Data for Last 24 hours Vital signs and Labs for Last 24 Hours: Temp Pulse Resp BP Pulse Ox O2 Del Method O2 Flow Rate 97.5 F L 87 19 133/85 94 L Nasal Cannula 5 12/02/22 11:08 12/02/22 09:00 12/02/22 09:00 12/02/22 09:00 12/02/22 09:00 12/02/22 09:00 12/02/22 09:00 FiO2 50 12/01/22 06:00 Laboratory Results - last 24 hr 12/02/22 06:57: WBC 12.4 H, RBC 3.99 L, Hgb 13.2, Hct 35.2 L, MCV 88.2, MCH 33.2 H, MCHC 37.6 H, RDW 14.4, Plt Count 205, MPV 9.8, Neut % (Auto) 73.5, Lymph % (Auto) 16.0, [place] % (Auto) 8.6, Eos % (Auto) 1.5, Baso % (Auto) 0.3, Neut # (Auto) 9.1 H, Lymph # (Auto) 2.0, [place] # (Auto) 1.1 H, Eos # (Auto) 0.2, Baso # (Auto) 0.0, Sodium 137, Potassium 2.9 L*, Chloride 98, Carbon Dioxide 29, Anion Gap 12.9, BUN 17, Creatinine 0.80, Estimated Creat Clear 58, Estimated GFR 69, Est GFR ( Amer) 84, Glucose 115 H, Calcium 8.7 I & O for Last 24 hours: Intake & Output 11/29/22 11/30/22 12/01/22 12/02/22 23:59 23:59 23:59 23:59 Intake Total 939 / 939 1095.425 / 1169.425 872 / 872 Output Total 800 / 800 2300 / 2400 320 / 320 Balance 139 / 139 -1204.575 / -1230.575 552 / 552 Weight 77.519 kg 80.286 kg 81.193 kg Microbiology Reports for the Last 24 Hours: Microbiology 11/30/22 08:51 Blood Blood Culture - Preliminary NO GROWTH AFTER 48 HOURS 11/30/22 16:03 Urine,Clean Catch Urine Culture - Preliminary 11/30/22 08:09 Blood Blood Culture - Preliminary NO GROWTH AFTER 48 HOURS Constitutional Constitutional: no acute distress *Routine HEENT Exam Head: Present normocephalic Eye: Present EOMI and PERRL ENT: Present mucous membranes moist *Routine Neck Exam Neck: Present supple; Absent lymphadenopathy *Routine Respiratory Exam Respiratory: Present CTA bilaterally, able to speak in complete sentences and symmetric chest movement *Routine Cardiovascular Exam Cardiovascular: Present tachycardia and irregularly irregular *Routine Abdominal Exam Abdominal: Present soft and normoactive bowel sounds; Absent tenderness *Routine Extremities Exam Extremities: Absent cyanosis, clubbing or edema *Routine Skin Exam Skin: Present warm; Absent rash *Routine Neurological Exam Neurological: Present alert and oriented X3 Assessment and Plan *Assessment and plan (1) Hypertension: Status: Acute Category: Medical Code(s): I10 - Essential (primary) hypertension (2) Atrial fibrillation with rapid ventricular response: Status: Acute Category: Medical Code(s): I48.91 - Unspecified atrial fibrillation (3) Acute dyspnea: Status: Acute Category: Medical Code(s): R06.00 - Dyspnea, unspecified (4) GI bleeding: Status: Acute Category: Medical Code(s): K92.2 - Gastrointestinal hemorrhage, unspecified (5) Obesity: Status: Acute Category: Medical Code(s): E66.9 - Obesity, unspecified Plan Ms. Girard is a 82 year old female with a past medical history of atrial fibrillation, hypertension and obesity who presented to the ED with 1 week of shortness of breath. In the ER she was found to be in afib with RVR with HR 150-170. Cardizem drip was started but then changed to Amiodarone drip after Cardiology was contacted. Her Molding Room Supervisor is Dr. Arpit Rose at [facility]. She was taking both metoprolol and diltiazem but two weeks ago her diltiazem was discontinued and the dose of her metoprolol was not changed. She states that her Xarelto was discontinued 2 days prior to admission because she had hemorrhoidal bleeding. Hospital course was complicated by CHF exacerbation; she has no history of CHF. #acute hypoxic respiratory failure #CHF exacerbation, new diag
--- NOTE | 2022-12-02 13:12 | ECG_ITS ---
APPROVED REPORT Exam: Resting ECG HR:105 bpm ECG Measurements Heart Rate 105 AXES QRSd 152 QRS 84 QT 406 T -54 QTc 467 Conclusion ATRIAL FIBRILLATION WITH RAPID VENTRICULAR RESPONSE RIGHT BUNDLE BRANCH BLOCK [120+ ms QRS DURATION, UPRIGHT V1, 40+ ms S IN I/aVL/V4/V5/V6] MODERATE T-WAVE ABNORMALITY, CONSIDER LATERAL ISCHEMIA [-0.1+ mV T-WAVE IN I/aVL/V5/V6] ABNORMAL ECG UNCONFIRMED REPORT Electronically signed by : Vlad García MD 12/02/2022 15:49:07
--- NOTE | 2022-12-02 21:08 | EXP.CARD.PN ---
Subjective Subjective Date: 12/02/22 Time: 21:09 Principal diagnosis: Atrial fibrillation with rapid ventricular rate and acute pulmonary edema Interval history: Chief complaint and history of present illness: 82 year old female with a past medical history of atrial fibrillation, hypertension and obesity presented to the emergency room with progressive shortness of breath for last 1 week. Patient was in A-fib with rapid ventricular rate. Patient was started on amiodarone drip and Lovenox subcu. Patient was on Xarelto for A-fib which was stopped a year ago. Patient resumed Xarelto 2 weeks ago and stopped again 2 days ago due to hemorrhoidal bleeding. Patient went into acute pulmonary edema on 11/30/2022 which was treated with IV Lasix. Events last 24 hours/subjective: Heart rate was still uncontrolled on amiodarone drip yesterday. Cardizem drip was started which was discontinued by primary care team occupational health physician. Amiodarone drip was discontinued today and p.o. Amio was started. Still diuresing well with IV Lasix Less shortness of breath Potassium was 2.9 which was replaced this morning by primary care team EKG A-fib with RVR Right bundle branch block Exam Data for Last 24 hours Vital signs and Labs for Last 24 Hours: Temp Pulse Resp BP Pulse Ox O2 Del Method O2 Flow Rate 98.1 F 113 H 19 150/92 H 96 Nasal Cannula 5 12/02/22 20:00 12/02/22 19:00 12/02/22 19:00 12/02/22 19:00 12/02/22 19:00 12/02/22 19:00 12/02/22 19:00 FiO2 50 12/01/22 06:00 Laboratory Results - last 24 hr 12/02/22 06:57: WBC 12.4 H, RBC 3.99 L, Hgb 13.2, Hct 35.2 L, MCV 88.2, MCH 33.2 H, MCHC 37.6 H, RDW 14.4, Plt Count 205, MPV 9.8, Neut % (Auto) 73.5, Lymph % (Auto) 16.0, [place] % (Auto) 8.6, Eos % (Auto) 1.5, Baso % (Auto) 0.3, Neut # (Auto) 9.1 H, Lymph # (Auto) 2.0, [place] # (Auto) 1.1 H, Eos # (Auto) 0.2, Baso # (Auto) 0.0, Sodium 137, Potassium 2.9 L*, Chloride 98, Carbon Dioxide 29, Anion Gap 12.9, BUN 17, Creatinine 0.80, Estimated Creat Clear 58, Estimated GFR 69, Est GFR ( Amer) 84, Glucose 115 H, Calcium 8.7 I & O for Last 24 hours: Intake & Output 11/29/22 11/30/22 12/01/22 12/02/22 23:59 23:59 23:59 23:59 Intake Total 939 / 939 1095.425 / 3118.414 9713 / 1592 Output Total 800 / 800 2300 / 2400 2920 / 2920 Balance 139 / 139 -1204.575 / -1230.575 -1328 / -1328 Weight 170 lb 14.4 oz 177 lb 179 lb Microbiology Reports for the Last 24 Hours: Microbiology 11/30/22 08:51 Blood Blood Culture - Preliminary NO GROWTH AFTER 48 HOURS 11/30/22 16:03 Urine,Clean Catch Urine Culture - Preliminary 11/30/22 08:09 Blood Blood Culture - Preliminary NO GROWTH AFTER 48 HOURS Constitutional Constitutional: no acute distress *Routine Respiratory Exam Respiratory: Present crackles *Routine Cardiovascular Exam Cardiovascular: Present Normal S1, Normal S2, tachycardia and irregularly irregular *Routine Abdominal Exam Abdominal: Present soft and normoactive bowel sounds *Routine Neurological Exam Neurological: Present alert, oriented X3 and CN II-XII intact Progress Note: A&P Assessment and plan (1) Atrial fibrillation with rapid ventricular response: Status: Acute Assessment and plan: History of atrial fibrillation Admitted with A-fib with RVR and pulmonary edema Patient is on metoprolol succinate 100 mg daily. We will continue that. Patient was on Cardizem which was discontinued by primary assistant printer floor covering. I recommended Cardizem drip which was discontinued by primary care team because patient's heart rate was controlled. Patient was on amio drip for almost 48 hours which was discontinued today and I started her on amiodarone 200 mg twice daily. Continue Lovenox subcutaneously therapeutic dose. Discharge her home with Xarelto or Eliquis or Pradaxa Her heart rate was better controlled during the daytime but again heart rate is in 100s at present Jean
[2022-12-03] VITALS (31 sets, daily range): BP systolic 109–172; BP diastolic 45–94; PULSE 65–107; RESP 14–35; TEMP 36.7–37.2; O2SAT 93–100; BMI 34.8
[2022-12-03 06:34] LABS: Basophils # 0.1 K/mm3 (0-0.2); Basophils % 0.4 % (0.1-2.0); Eosinophils # 0.2 K/mm3 (0.0-0.4); Eosinophils % 1.5 % (0.1-12.0); Hematocrit 38.6 % (37.0-47.0); Lymphocytes # 2.2 K/mm3 (0.7-4.5); Lymphocytes % 17.6 % (10-50); Mean Corpuscular HGB Conc 33.6 g/dL (31.8-35.4); Mean Corpuscular Hemoglobin 29.3 pg (27.0-31.2); Mean Corpuscular Volume 87.1 fl (81-99); Mean Platelet Volume 10.3 fl (7.4-10.4); Monocytes # 1.1 K/mm3 (0.1-1.0); Monocytes % 8.7 % (1.7-9.3); Neutrophils % 71.8 % (37.0-80.0); Platelet Count 240 K/mm3 (142-424); Red Blood Count 4.43 M/mm3 (4.20-5.40); Red Cell Distribution Width 14.5 % (11.5-17.5); White Blood Count 12.5 K/mm3 (4.8-10.8)
[2022-12-03 06:49] LABS: NT Pro Brain Natriuretic Pep. 784 pg/mL (0-450)
[2022-12-03 06:54] LABS: Anion Gap 14.5 mEq/L (5-15); Blood Urea Nitrogen 16 mg/dl (7-17); Calcium 8.7 mg/dl (8.4-10.2); Carbon Dioxide 27 mmol/L (22.0-30.0); Chloride 98 mmol/L (98-107); Creatinine Clearance Estimated 57 mL/min (50-200); Estimated Glomerular Filt Rate 81 ml/min (>60); GFR (African American) 97 ML/MIN (>60); Glucose 100 mg/dl (74-100); Magnesium 1.8 mg/dl (1.6-2.3); Potassium 3.5 mmoL/L (3.5-5.1); Sodium 136 mmol/L (136-145)
--- NOTE | 2022-12-03 07:00 | XR_ITS ---
PROCEDURE INFORMATION: Exam: XR Chest Exam date and time: 12/03/2022 6:36 AM Age: 82 years old Clinical indication: Shortness of breath; Additional info: Chf exacerbation TECHNIQUE: Imaging protocol: Radiologic exam of the chest. Views: 1 view. COMPARISON: CR XR CHEST PORTABLE 12/01/2022 7:46 AM FINDINGS: Limitations: Radiographic technique - mild. Tubes, catheters and devices: Leads overlying chest. Lungs: Hazy opacities within lung bases. Pleural spaces: Small bilateral pleural effusions. No pneumothorax. Heart/Mediastinum: Mild cardiomegaly. Bones/joints: No displaced fracture. Soft tissues: Unremarkable. IMPRESSION: Bilateral pleural effusions with bibasilar atelectasis and/or pneumonia.
--- NOTE | 2022-12-03 10:08 | EXP.CARD.PN ---
Subjective Subjective Date: 12/03/22 Time: 09:30 Principal diagnosis: Atrial fibrillation with rapid ventricular rate and acute pulmonary edema Interval history: This is an 82-year-old white female who presented to the emergency department for shortness of breath. The patient was found to have atrial fibrillation with RVR and acute pulmonary edema. The patient has been treated with IV amiodarone and has since been converted to oral amiodarone. She was also started on an IV diltiazem drip but this was also stopped and no oral diltiazem was given. She was restarted on IV diltiazem late last night. She remains in atrial fibrillation this morning with a heart rate between 106 and 133 bpm. She was also treated with IV Lasix for her pulmonary edema. She continues to diurese and had a -1878 fluid balance overnight. She denies feeling her heart racing. She denies any chest pain or pressure this morning. She states that her shortness of breath has significantly improved. She denies any lower extremity edema. She denies any fever, chills, nausea, vomiting, diarrhea, PND or orthopnea. Exam Data for Last 24 hours Vital signs and Labs for Last 24 Hours: Temp Pulse Resp BP Pulse Ox O2 Del Method O2 Flow Rate 98.0 F 100 H 20 143/71 H 95 Nasal Cannula 25 12/03/22 07:28 12/03/22 08:00 12/03/22 08:00 12/03/22 08:00 12/03/22 08:00 12/03/22 08:00 12/03/22 08:00 FiO2 50 12/01/22 06:00 Laboratory Results - last 24 hr 11/30/22 16:03: Urine Color Yellow, Urine Appearance Clear, Urine pH 6.0, Ur Specific [place] 1.010, Urine Protein Negative, Urine Glucose (UA) Negative, Urine Ketones Negative, Urine Blood Negative, Urine Nitrate Negative, Urine Bilirubin Negative, Urine Urobilinogen 0.2, Ur Leukocyte Esterase Trace A, Urine RBC None, Urine WBC 3-5, Ur Squamous Epith Cells 5-10 12/03/22 05:21: WBC 12.5 H, RBC 4.43, Hgb 13.0, Hct 38.6, MCV 87.1, MCH 29.3, MCHC 33.6, RDW 14.5, Plt Count 240, MPV 10.3, Neut % (Auto) 71.8, Lymph % (Auto) 17.6, [place] % (Auto) 8.7, Eos % (Auto) 1.5, Baso % (Auto) 0.4, Neut # (Auto) 9.0 H, Lymph # (Auto) 2.2, [place] # (Auto) 1.1 H, Eos # (Auto) 0.2, Baso # (Auto) 0.1, Sodium 136, Potassium 3.5 D, Chloride 98, Carbon Dioxide 27, Anion Gap 14.5, BUN 16, Creatinine 0.70, Estimated Creat Clear 57, Estimated GFR 81, Est GFR ( Amer) 97, Glucose 100, Calcium 8.7, Magnesium 1.8, NT-Pro-B Natriuret Pep 784 H I & O for Last 24 hours: Intake & Output 11/30/22 12/01/22 12/02/22 12/03/22 23:59 23:59 23:59 23:59 Intake Total 939 / 939 1095.425 / 4571.845 3262 / 1842 35 / 35 Output Total 800 / 800 2300 / 2400 3720 / 4120 1200 / 1200 Balance 139 / 139 -1204.575 / -1230.575 -1878 / -2278 -1165 / -1165 Weight 170 lb 14.4 oz 177 lb 179 lb 177 lb 4.767 oz Microbiology Reports for the Last 24 Hours: Microbiology 11/30/22 16:03 Urine,Clean Catch Urine Culture - Preliminary Gram Positive Cocci 11/30/22 08:51 Blood Blood Culture - Preliminary NO GROWTH AFTER 48 HOURS 11/30/22 08:09 Blood Blood Culture - Preliminary NO GROWTH AFTER 48 HOURS Narrative: Telemetry strip shows atrial fibrillation with a rate of 106-133 bpm. Constitutional Constitutional: no acute distress and obese *Routine HEENT Exam Head: Present normocephalic and atraumatic ENT: Present mucous membranes moist *Routine Neck Exam Neck: Present supple, full ROM and normal carotid upstroke; Absent JVD, carotid bruit or lymphadenopathy *Routine Respiratory Exam Respiratory: Present CTA bilaterally, normal respiratory effort, able to speak in complete sentences and symmetric chest movement *Routine Cardiovascular Exam Cardiovascular: Present Normal S1, Normal S2, tachycardia and irregularly irregular; Absent murmur or gallop *Routine Abdominal Exam Abdominal: Present soft and normoactive bowel sounds; Absent tenderness, distended or organomegaly *Routine Extremiti
--- NOTE | 2022-12-03 10:12 | CA_ITS ---
APPROVED REPORT EXAM: Comprehensive 2D, Doppler, and color-flow Echocardiogram Psychiatry Teacher: Kanika Ziegler RVT Ht: 4 ft 11 in Wt: 177lbs BSA: 1.75 BP: 143/71 mmHg Indications: A-FIB,HTN,SOA,HLD,OBESITY 2D Dimensions LVOT 1.90 cm (M/F) 1.5-2.5 LA Volume 65.20 mL LA Volume Index 37.26 mL/m2 (M/F) 16-34 M-Mode Dimensions RVDd 3.01 cm (0.9-2.6) LA Diam 4.57 cm (1.9-4.0) LVDd 4.98 cm (3.5-5.7) Ao Diam 2.52 cm (2.0-3.7) LVDs 3.41 cm (3.5-5.7) IVSd 0.72 cm (0.6-1.1) PWd 0.64 cm (0.6-1.1) EF (Teich) 59.20% FS 31.50% EDV (Teich) 117.10 mL TAPSE 1.26 (<1.7) ESV (Teich) 47.80 mL LV Diastology E Decel Time 150.00 (160-240 msec) E/A Ratio 2.8 MED E' 7.80 (< 7 cm/sec) E'/MED E' Ratio 13.72 (>14) LAT E' 10.00 (<10 cm/sec) E/LAT E' Ratio 10.70 (>14) Aortic Valve AI PHT 1441.00 ms AO Peak GR. 6.00 mmHg Mitral Valve MV E Max Alirio. 107.00 (40-130 cm/s) MV A Velocity 38.00 (40-130 cm/s) E/A Ratio 2.79 MV Decel. Time 150.00 (160-240 ms) MV PHT 44.00 ms Pulmonary Valve PV Peak Velocity 88.00 (50-150 cm/s) Tricuspid Valve TR P. Velocity 219.00 cm/s RAP Estimate 10.00 mmHg RVSP 29.30 mmHg Left Ventricle The left ventricle is normal size. Left ventricular systolic function is moderately decreased. There is normal left ventricular wall thickness. There is moderate global hypokinesis present. There is severe hypokinesis of the anterior, lateral, and anterolateral LV ventura. Diastolic function is indeterminate due to atrial fibrillation. LVEF is 35% Right Ventricle Right ventricle is mildly dilated. Right ventricle is moderately hypokinetic. Atria Left atrium is mildly dilated. Right atrium is mildly dilated. There is no Doppler evidence of interatrial shunt. Aortic Valve The aortic valve is mildly thickened. There is no aortic valvular stenosis. Mild aortic regurgitation. Mitral Valve There is mild mitral annular calcification (MAC). The mitral valve is mildly thickened. No evidence of mitral valve stenosis. Mild mitral regurgitation. Tricuspid Valve The tricuspid valve leaflets are thin and pliable. Trace tricuspid regurgitation. There is insufficient TR jet to estimate RVSP. Pulmonic Valve The pulmonary valve is normal in structure. Trace pulmonic regurgitation. Great Vessels The aortic root is normal in size. The ascending aorta is normal in size. IVC is normal in size and collapses >50% with inspiration. Pericardium There is no pericardial effusion. Other Information Study Quality: Fair Conclusion Moderate reduction in LV systolic function (LVEF 35%) Severe hypokinesis of the anterior, lateral, and anterolateral LV ventura. Mild RV dilation with moderate reduction in RV function Mild AI Mild MR Biatrial enlargement The patient is noted to be in atrial fibrillation during the acquisition of the study images. Electronically signed by : Allyson Garcia, 12/03/2022 21:30:21
--- NOTE | 2022-12-03 12:32 | P.PNANES_ITS ---
[facility] Disclaimer: The information contained in this section may have been updated after the patient was seen, as this information can be updated by other users. Medical History Acute pulmonary edema Afib Colon cancer History of left heart catheterization (LHC) Hyperlipidemia Hypertension Surgical History H/O: hysterectomy History of colon surgery Hx of cataract surgery Social History Smoking Status: Never smoker alcohol intake: never substance use type: denies use current occupational status: retired Travel in the last 8 weeks: None [facility] Anesthesia Checklist Patient Identification Patient Identification: Arm Band and Verbal (Name & ) Structural Data Admitted From: Inpatient Planned Operative Procedure/s: SKY Consent for Planned Operative Procedure(s) Verified: Yes NPO Status Verified Time NPO: 00:00 Chart Verification Results Verified: CBC and BMP Additional verifications Anesthesia Reactions: No Airway Assessment Mallampati Score:: Class II C-Spine Mobility Assessed: Yes TMJ Mobility Assessed: Yes Dentition: Good Dentition Neurological Assessment Level of Consciousness: Awake Hx Seizures: No Numbness or tingling in extremities: No Anesthesia Plan Anesthesia Risk discussed: Yes Anesthesia Plan: Verified ASA Class: III Anesthesia Type: MAC
--- NOTE | 2022-12-03 13:00 | CA_ITS ---
APPROVED REPORT EXAM: Comprehensive 2D, Doppler, and color-flow Echocardiogram [place] Operator: RT Madhu(R) Ht: 4 ft 11 in Wt: 177lbs BSA: 1.75 BP: 143/71 mmHg Rhythm: Atrial Fibrillation Indications: AFIB, HTN, SOB, obesity, hyperlipidemia, pre-cardioversion Procedure After obtaining informed consent, patient underwent transesophageal echo in the patient's room. Type of Sedation : MAC Sedation was administered by Kalee CarrasquilloR.N.ALucie Sedation start time: 1:15 PM Case end Time: 1:45 PM Sedation was achieved intravenously with: Transesophageal probe was inserted and advanced into esophagus without difficulty by Dr. Neeraj Garcia. The KSY was performed without complications. Synchronized Cardioversion acheived with 150 Joules after 1 attempt(s). Rhythm following Synchronized Cardioversion: Normal Sinus Rhythm Throughout the procedure, the blood pressure, pulse oximetry, cardiac rhythm, and rate were monitored. The patient tolerated the procedure without adverse effects. Recovery from conscious sedation was uneventful and vital signs were stable. Left Ventricle The left ventricle is normal size. The left ventricular systolic function is moderately reduced. There is normal left ventricular wall thickness. Regional wall motion abnormalities cannot be excluded. LVEF is 35%. Right Ventricle Right ventricle is mildly dilated. Right ventricle is moderately hypokinetic. Atria The left atrium is dilated. There is no mass suspected in the left atrium. There is no thrombus suspected in the left atrium or the left atrial appendage. The right atrium is dilated. Interatrial septum is intact without evidence of ASD or PFO. Aortic Valve The aortic valve is trileaflet. The aortic valve is mildly thickened, but opens well. There is no aortic valvular stenosis. Mild aortic regurgitation. Mitral Valve There is mild mitral annular calcification (MAC). The mitral valve is mildly thickened. No evidence of mitral valve stenosis. Mild mitral regurgitation. Tricuspid Valve The tricuspid valve leaflets are thin and pliable. Mild tricuspid regurgitation. RVSP is 25 mmHg + RA pressure. Pulmonic Valve The pulmonary valve is normal in structure. Mild pulmonic regurgitation. Great Vessels The aortic root is normal in size. The ascending aorta is normal in size. There is moderate calcification in the descending aorta and the aortic arch. Pericardium Trivial pericardial effusion. Other Information Study Quality: Fair Conclusion Moderate reduction in LV systolic function. Mild RV dilation with moderate reduction in RV function. No evidence of LA or JULIO mass or thrombus. No significant valvular disease. Moderate calcification in the descending aorta and the aortic arch. The patient underwent SKY/DCCV with 150J, after which she successfully converted to NSR following 1 DCCV attempt. Electronically signed by : Allyson Garcia, 12/03/2022 20:18:34
--- NOTE | 2022-12-03 13:46 | ECG_ITS ---
APPROVED REPORT Exam: Resting ECG HR:68 bpm ECG Measurements Heart Rate 68 AXES OK 186 P 60 QRSd 161 QRS 7 QT 453 T 44 QTc 469 Conclusion SINUS RHYTHM INDETERMINATE AXIS RIGHT BUNDLE BRANCH BLOCK [120+ ms QRS DURATION, UPRIGHT V1, 40+ ms S IN I/aVL/V4/V5/V6] MODERATE T-WAVE ABNORMALITY, CONSIDER LATERAL ISCHEMIA [-0.1+ mV T-WAVE IN I/aVL/V5/V6] ABNORMAL ECG UNCONFIRMED REPORT Electronically signed by : Vlad García MD 12/03/2022 19:54:39
--- NOTE | 2022-12-03 14:05 | PC.NURSE ---
Per Magdalena Vásquez, jose, HOLD Xarelto for evening dose on 12/03/22. Continue Lovenox. Schedule for chemical stress in the AM. Continue Amiodarone as ordered.
--- NOTE | 2022-12-03 18:22 | EXP.ACUTE.PN ---
Subjective *Date: 12/03/22 *Time: 18:22 Interval history: Patient stable this morning on 2 L nasal cannula oxygen. Discontinue Ramírez catheter after rounds. Still in A-fib with RVR, resume diltiazem yesterday evening. Cardiology planning on cardioverting today. Family at bedside, updated of plan. Patient denies any chest pain, nausea, vomiting, confusion. Blood pressure within normal Medical Exam Vital signs and Labs for Last 24 Hours: Vital Signs Temp Pulse Pulse Resp BP Pulse Ox O2 Del Method 12/03/22 18:00 76 18 145/54 H 95 Room Air 12/03/22 17:00 Room Air 12/03/22 17:31 77 18 148/69 H 96 Room Air 12/03/22 16:31 76 26 H 119/55 L 95 Room Air 12/03/22 16:00 96 Room Air 12/03/22 16:00 80 12/03/22 16:01 81 14 145/54 H 96 Room Air 12/03/22 12:00 97 H 12/03/22 15:38 94 L Room Air 12/03/22 15:37 87 12/03/22 15:31 81 18 142/94 H 94 L Room Air 12/03/22 15:01 81 17 116/52 L 94 L Nasal Cannula 12/03/22 14:31 70 16 130/66 100 BiPAP 12/03/22 14:16 71 19 116/54 L 100 BiPAP 12/03/22 15:28 98.7 F 12/03/22 15:00 BiPAP 12/03/22 14:04 12/03/22 14:01 70 25 H 126/60 98 BiPAP 12/03/22 13:00 Simple Mask 12/03/22 13:46 98.9 F 71 30 H 126/58 L 95 BiPAP 12/03/22 11:29 98.3 F 12/03/22 11:00 Nasal Cannula 12/03/22 08:00 95 Room Air 12/03/22 09:00 Nasal Cannula 12/03/22 08:00 107 H 93 L Nasal Cannula 12/03/22 08:00 100 H 12/03/22 08:00 100 H 20 143/71 H 95 Nasal Cannula 12/03/22 07:00 82 23 145/53 H 98 Nasal Cannula 12/03/22 07:28 98.0 F 12/03/22 06:14 Nasal Cannula 12/03/22 06:00 98.3 F 92 H 20 146/81 H 94 L Nasal Cannula 12/03/22 04:00 90 12/03/22 05:00 84 15 132/81 97 Nasal Cannula 12/03/22 05:00 Nasal Cannula 12/03/22 04:00 98.0 F Room Air 12/03/22 04:00 76 14 124/76 96 Nasal Cannula 12/03/22 03:59 80 12/03/22 03:00 94 H 14 152/94 H 95 Nasal Cannula 12/03/22 02:50 Nasal Cannula 12/03/22 02:00 90 19 172/72 H 94 L Nasal Cannula 12/03/22 00:00 100 H 12/02/22 20:00 100 H 12/03/22 01:00 103 H 16 144/65 H 97 Nasal Cannula 12/03/22 00:57 Nasal Cannula 12/03/22 00:00 90 12/02/22 20:00 133 H 12/03/22 00:00 98.3 F 12/03/22 00:00 93 L Nasal Cannula 12/03/22 00:00 89 14 134/90 93 L Nasal Cannula 12/02/22 23:00 Nasal Cannula 12/02/22 23:00 110 H 17 140/93 H 95 Nasal Cannula 12/02/22 22:00 109 H 19 162/88 H 95 Nasal Cannula 12/02/22 21:00 98.1 F 133 H 21 120/81 95 Nasal Cannula 12/02/22 21:00 Nasal Cannula 12/02/22 20:00 98.1 F 12/02/22 19:00 Nasal Cannula 12/02/22 19:00 113 H 19 150/92 H 96 Nasal Cannula O2 Flow Rate FiO2 12/03/22 18:00 12/03/22 17:00 12/03/22 17:31 12/03/22 16:31 12/03/22 16:00 12/03/22 16:00 12/03/22 16:01 12/03/22 12:00 12/03/22 15:38 12/03/22 15:37 12/03/22 15:31 12/03/22 15:01 3 12/03/22 14:31 12/03/22 14:16 12/03/22 15:28 12/03/22 15:00 12/03/22 14:04 50 12/03/22 14:01 12/03/22 13:00 12/03/22 13:46 12/03/22 11:29 12/03/22 11:00 2 12/03/22 08:00 12/03/22 09:00 2 12/03/22 08:00 2 12/03/22 08:00 12/03/22 08:00 25 12/03/22 07:00 2 12/03/22 07:28 12/03/22 06:14 2 12/03/22 06:00 2 12/03/22 04:00 12/03/22 05:00 2 12/03/22 05:00 2 12/03/22 04:00 12/03/22 04:00 2 12/03/22 03:59 12/03/22 03:00 2 12/03/22 02:50 2 12/03/22 02:00 2 12/03/22 00:00 12/02/22 20:00 12/03/22 01:00 2 12/03/22 00:57 2 12/03/22 00:00 12/02/22 20:00 12/03/22 00:00 12/03/22 00:00 2 12/03/22 00:00 2 12/02/22 23:00 2 12/02/22 23:00 2 12/02/22 22:00 5 12/02/22 21:00 5 12/02/22 21
[2022-12-04] VITALS (9 sets, daily range): BP systolic 114–160; BP diastolic 44–97; PULSE 60–77; RESP 12–23; TEMP 36.5–36.8; O2SAT 94–99; BMI 34.3
--- NOTE | 2022-12-04 | CA_ITS ---
APPROVED REPORT Exam: Pharmacologic Technologist: Norah Sauceda Ht: 5 ft 0 in Wt: 170 lbs BSA: 1.74 m2 HR: 79 bpm BP: 148/82 mmHg Indications: Shortness of Breath, Abnormal Echo Medical History Medications: Metoprolol,,,,, Pravastatin,,,,, HCTZ,,,,, Nitrofurantoin,,,,, MacroCRYSTAL,,,,, Stress Test Details Test: LEXISCAN HR Resting HR: 78 bpm Max Heart Rate (APMHR): 140 bpm Max HR Achieved: 92 bpm Target HR (85% APMHR): 119 bpm % of APMHR: 66 Recovery HR: 78 bpm BP Resting BP: 148.0/82.0 mmHg Max BP: 167.0/69.0 mmHg Recovery BP: 157.0/70.0 mmHg ECG Resting ECG: Normal sinus rhythm, Right bundle branch block Stress ECG: No significant ST changes Arrhythmia: None Clinical Exercise duration: 04:45 min Highest Stage Achieved: Stress ECG Conclusion Symptoms: Shortness of air, nausea. No chest pain Arrhythmias/Ectopy: None ST-T Changes: No significant changes. Conclusion: Unremarkable Lexiscan stress test. Myoview images reported separately. Test Summary REST 10:35 . . 78 . 148/ 82 . . Stage 1 01:00 . . 78 . . . . Stage 2 01:00 . . 84 . . . . Stage 3 01:00 . . 81 . . . . Stage 4 01:00 . . 85 . 167/ 69 . . Stage 4 01:45 . . 81 . 167/ 69 . Stop exercise at 04:45 RECOVERY 01:00 . . 81 . . . . RECOVERY 02:00 . . 82 . 165/ 64 . . RECOVERY 03:00 . . 79 . 157/ 70 . . RECOVERY 03:24 . . 78 . 157/ 70 . . Electronically signed by : Allyson Garcai, 12/05/2022 00:44:38
--- NOTE | 2022-12-04 06:00 | NM_ITS ---
APPROVED REPORT Exam: Nuclear Stress Test Indication: soa..palpitations..fatigue..high BP..family Hx..A-fib Patient Location: Inpatient Stress Tech: Norah Sauceda ID Tech:Kimber Langston ARREleonora RT(R)(N) Ht: 5 ft 0 in Wt: 173 lbs Bra Size: 42d HR: 78 bpm BP: 148/82 mmHg BSA: 1.76 m2 Rhythm: NSR TID: 1.05 History: .soa..palpitations..fatigue..high BP..family Hx..A-fib Procedure: Patient received 0.4 mg of intravenous Lexiscan, resting heart rate 78 bpm, resting blood pressure 148/82 mmHg, with Lexiscan maximum heart rate achieved was 92 bpm which is 85 % of the maximum predicted heart rate and blood pressure was 167/69 mmHg. With Lexiscan, patient denied any complaint of chest pain. The patient was not able to lie on her abdomen for prone images. Cardiac Stress and Resting SPECT Images: Cardiac Stress and Resting SPECT images were obtained using technetium 99m Myoview 30.3 mCi stress and 9.68 mCi at rest. The patient could not lie on her abdomen. Therefore prone stress imaging could not be performed. This may affect the diagnostic interpretation of the study findings. Resting and stress imaging in supine position demonstrate a medium sized, mild, fixed perfusion defect in the mid to distal anterior LV wall approaching the LV apex. Gated imaging demonstrates mild reduction in global LV systolic function. There is mild to moderate hypokinesis in the distal anterior LV wall. LVEF is calculated at 49%. Conclusion: Medium sized, mild, fixed perfusion defect in the mid to distal anterior LV wall approaching the LV apex. No evidence of reversible ischemia. Gated imaging demonstrates mild reduction in global LV systolic function. There is mild to moderate hypokinesis in the distal anterior LV wall. LVEF is calculated at 49%. Electronically signed by : Allyson Garcia, 12/05/2022 00:47:36
[2022-12-04 06:04] LABS: Basophils % 0.2 % (0.1-2.0); Eosinophils # 0.4 K/mm3 (0.0-0.4); Eosinophils % 2.7 % (0.1-12.0); Hematocrit 39.2 % (37.0-47.0); Lymphocytes # 2.1 K/mm3 (0.7-4.5); Lymphocytes % 15.4 % (10-50); Mean Corpuscular HGB Conc 33.2 g/dL (31.8-35.4); Mean Corpuscular Hemoglobin 28.9 pg (27.0-31.2); Monocytes # 1.2 K/mm3 (0.1-1.0); Monocytes % 8.5 % (1.7-9.3); Neutrophils # 9.9 K/mm3 (1.8-7.8); Neutrophils % 73.2 % (37.0-80.0); Platelet Count 225 K/mm3 (142-424); Red Blood Count 4.51 M/mm3 (4.20-5.40); Red Cell Distribution Width 14.6 % (11.5-17.5); White Blood Count 13.5 K/mm3 (4.8-10.8)
[2022-12-04 06:13] LABS: Alanine Aminotransferase 37 U/L (12-78); Albumin Level 3.7 g/dl (3.5-5.0); Alkaline Phosphatase 105 U/L (38-126); Anion Gap 12.7 mEq/L (5-15); Aspartate Amino Transferase 41 U/L (14-36); Bilirubin,Direct 0.1 mg/dl (0.0-0.4); Bilirubin,Indirect 0.6 mg/dL (0.0-0.9); Bilirubin,Total 0.7 mg/dl (0.2-1.3); Bilirubin,Unconjugated 0.6 mg/dL (0.0-1.1); Blood Urea Nitrogen 17 mg/dl (7-17); Carbon Dioxide 27 mmol/L (22.0-30.0); Chloride 98 mmol/L (98-107); Chol/HDL Ratio 4.3 (1-3.5); Cholesterol 116 mg/dl (140-200); Creatinine Clearance Estimated 56 mL/min (50-200); Estimated Glomerular Filt Rate 69 ml/min (>60); GFR (African American) 84 ML/MIN (>60); Glucose 130 mg/dl (74-100); HDL Cholesterol 27 mg/dl (40-60); Potassium 3.7 mmoL/L (3.5-5.1); Sodium 134 mmol/L (136-145); Total Protein,Serum 7.1 g/dl (6.3-8.2); Triglycerides 108 mg/dl (30-150); VLDL Cholesterol 22 mg/dL (0-40)
[2022-12-04 06:25] LABS: Direct LDL Cholesterol 59.12 mg/dL (100-129)
[2022-12-04 06:37] LABS: Magnesium 1.9 mg/dl (1.6-2.3)
[2022-12-04 06:46] LABS: NT Pro Brain Natriuretic Pep. 712 pg/mL (0-450)
--- NOTE | 2022-12-04 07:25 | PC.NURSE ---
pt to stress test via wheelchair
--- NOTE | 2022-12-04 07:36 | PC.NURSE ---
notified MD Samuels that pt's urine culture came back positive for MRSA, no new orders at this time
--- NOTE | 2022-12-04 07:42 | PC.NURSE ---
Spoke with Dr Samuels about pt's chemical stress test. He stated patient was going to be monitored by a PA during stress test, pt was maintaining SR, and pt was hemodynamically stable so no need for this RN to stay patient during test. Pt was transported to [facility] by Afia from radiology and myself.
--- NOTE | 2022-12-04 08:01 | EXP.PHA.PN ---
Subjective *Date: 12/04/22 *Time: 08:01 Medical Exam Vital signs and Labs for Last 24 Hours: Vital Signs Temp Pulse Pulse Resp BP Pulse Ox O2 Del Method 12/04/22 07:36 98.2 F 12/04/22 04:00 60 12/04/22 04:00 97.7 F 65 18 114/51 L 98 Nasal Cannula 12/04/22 06:55 Nasal Cannula 12/04/22 06:00 68 12 132/61 98 Nasal Cannula 12/04/22 05:00 Nasal Cannula 12/04/22 04:00 96 Nasal Cannula 12/04/22 02:58 Nasal Cannula 12/04/22 00:00 97 Nasal Cannula 12/04/22 00:00 60 12/03/22 20:00 70 12/04/22 02:00 68 16 131/75 97 Nasal Cannula 12/04/22 01:00 Nasal Cannula 12/04/22 00:00 97.7 F 70 20 132/69 99 Nasal Cannula 12/03/22 23:00 Nasal Cannula 12/03/22 20:00 97 Room Air 12/03/22 22:00 65 18 109/45 L 97 Nasal Cannula 12/03/22 21:00 Room Air 12/03/22 20:00 98.4 F 70 18 159/74 H 95 Room Air 12/03/22 19:00 Room Air 12/03/22 18:31 81 19 96 Room Air 12/03/22 18:00 76 18 145/54 H 95 Room Air 12/03/22 17:00 Room Air 12/03/22 17:31 77 18 148/69 H 96 Room Air 12/03/22 16:31 76 26 H 119/55 L 95 Room Air 12/03/22 16:00 96 Room Air 12/03/22 16:00 80 12/03/22 16:01 81 14 145/54 H 96 Room Air 12/03/22 12:00 97 H 12/03/22 15:38 94 L Room Air 12/03/22 15:37 87 12/03/22 15:31 81 18 142/94 H 94 L Room Air 12/03/22 15:01 81 17 116/52 L 94 L Nasal Cannula 12/03/22 14:31 70 16 130/66 100 BiPAP 12/03/22 14:16 71 19 116/54 L 100 BiPAP 12/03/22 15:28 98.7 F 12/03/22 15:00 BiPAP 12/03/22 14:04 12/03/22 14:01 70 25 H 126/60 98 BiPAP 12/03/22 13:00 Simple Mask 12/03/22 13:46 98.9 F 71 30 H 126/58 L 95 BiPAP 12/03/22 11:29 98.3 F 12/03/22 11:00 Nasal Cannula 12/03/22 09:00 Nasal Cannula O2 Flow Rate FiO2 12/04/22 07:36 12/04/22 04:00 12/04/22 04:00 3 12/04/22 06:55 3 12/04/22 06:00 3 12/04/22 05:00 3 12/04/22 04:00 3 12/04/22 02:58 3 12/04/22 00:00 3 12/04/22 00:00 12/03/22 20:00 12/04/22 02:00 3 12/04/22 01:00 3 12/04/22 00:00 3 12/03/22 23:00 3 12/03/22 20:00 12/03/22 22:00 3 12/03/22 21:00 12/03/22 20:00 12/03/22 19:00 12/03/22 18:31 12/03/22 18:00 12/03/22 17:00 12/03/22 17:31 12/03/22 16:31 12/03/22 16:00 12/03/22 16:00 12/03/22 16:01 12/03/22 12:00 12/03/22 15:38 12/03/22 15:37 12/03/22 15:31 12/03/22 15:01 3 12/03/22 14:31 12/03/22 14:16 12/03/22 15:28 12/03/22 15:00 12/03/22 14:04 50 12/03/22 14:01 12/03/22 13:00 12/03/22 13:46 12/03/22 11:29 12/03/22 11:00 2 12/03/22 09:00 2 Intake and Output 12/03/22 12/04/22 12/04/22 23:59 07:59 15:59 Intake Total 433 / 868 266 / 266 Output Total 2074 0 / 0 Balance 433 / -1207 266 / 266 Intake: Intake, Oral Amount 270 / 270 Intake, Total IV Amount 163 / 498 266 / 266 Amiodarone HCl 900 mg In 163 266 / 266 Dextrose 5 % in Water 500 ml @ 46 mls/hr IV .[id number] [facility] Rx#: [id number] Output: Output, Urine Amount 0 5 0 / 0 Other: Number of Unmeasured Voids 1 3 Weight 79.379 kg Patient Weight 12/04/22 23:59 Weight 79.379 kg Laboratory Results - last 24 hr 12/04/22 05:25: WBC 13.5 H, RBC 4.51, Hgb 13.0, Hct 39.2, MCV 87.0, MCH 28.9, MCHC 33.2, RDW 14.6, Plt Count 225, MPV 10.0, Neut % (Auto) 73.2, Lymph % (Auto) 15.4, [place] % (Auto) 8.5, Eos % (Auto) 2.7, Baso % (Auto) 0.2, Neut # (Auto) 9.9 H, Lymph # (Auto) 2.1, [place] # (Auto) 1.2 H, Eos # (Auto) 0.4, Baso # (Auto) 0.0, Sodium 134 L, Potassium 3.7, Chloride 98, Carbon Dioxide 27, Anion Gap 12.7, BUN 17, Creatinine 0.80, Estimated Creat Clear 56, Estimated GFR 69, Est GFR ( Amer) 84, Glucose 130 H, Calcium 9.0, Magnesium 1.9,
--- NOTE | 2022-12-04 09:27 | EXP.CARD.PN ---
Subjective Subjective Date: 12/04/22 Time: 11:00 Principal diagnosis: Atrial fibrillation with rapid ventricular rate and acute pulmonary edema Interval history: This is an 82-year-old white female who presented to the emergency department with shortness of breath. She is found to be in atrial fibrillation with RVR and acute pulmonary edema. The patient was diuresed with IV Lasix. She was also started on an amiodarone drip as well as a diltiazem drip. The patient remained in atrial fibrillation with RVR yesterday. She underwent SKY with cardioversion and was successfully cardioverted back to sinus rhythm. Diltiazem was stopped because of an ejection fraction of 35% and cardiomyopathy. This is contraindicated in the patient with known cardiomyopathy. She was started on oral and IV amiodarone following her cardioversion. She remains in sinus rhythm with a rate of 70s this morning. She denies any chest pain or pressure this morning. She denies any shortness of breath or edema. She denies any fever, chills, nausea, vomiting, diarrhea, PND or orthopnea. Exam Data for Last 24 hours Vital signs and Labs for Last 24 Hours: Temp Pulse Resp BP Pulse Ox O2 Del Method O2 Flow Rate 98.2 F 68 12 132/61 98 Nasal Cannula 3 12/04/22 07:36 12/04/22 06:00 12/04/22 06:00 12/04/22 06:00 12/04/22 06:00 12/04/22 06:55 12/04/22 06:55 FiO2 50 12/03/22 14:04 Laboratory Results - last 24 hr 12/04/22 05:25: WBC 13.5 H, RBC 4.51, Hgb 13.0, Hct 39.2, MCV 87.0, MCH 28.9, MCHC 33.2, RDW 14.6, Plt Count 225, MPV 10.0, Neut % (Auto) 73.2, Lymph % (Auto) 15.4, [place] % (Auto) 8.5, Eos % (Auto) 2.7, Baso % (Auto) 0.2, Neut # (Auto) 9.9 H, Lymph # (Auto) 2.1, [place] # (Auto) 1.2 H, Eos # (Auto) 0.4, Baso # (Auto) 0.0, Sodium 134 L, Potassium 3.7, Chloride 98, Carbon Dioxide 27, Anion Gap 12.7, BUN 17, Creatinine 0.80, Estimated Creat Clear 56, Estimated GFR 69, Est GFR ( Amer) 84, Glucose 130 H, Calcium 9.0, Magnesium 1.9, Total Bilirubin 0.7, Direct Bilirubin 0.1, Conjugated Bilirubin 0.0, Indirect Bilirubin 0.6, Unconjugated Bilirubin 0.6, AST 41 H, ALT 37, Alkaline Phosphatase 105, NT-Pro-B Natriuret Pep 712 H, Total Protein 7.1, Albumin 3.7, Triglycerides 108, Cholesterol 116 L, LDL Cholesterol Direct 59.12 L, VLDL Cholesterol 22, HDL Cholesterol 27 L, Cholesterol/HDL Ratio 4.3 H I & O for Last 24 hours: Intake & Output 12/01/22 12/02/22 12/03/22 12/04/22 23:59 23:59 23:59 23:59 Intake Total 1095.425 / 0625.966 9441 / 1842 868 / 868 266 / 266 Output Total 2300 / 2400 3720 / 4120 2075 / 2075 0 / 0 Balance -1204.575 / -1230.575 -1878 / -2278 -1207 / -1207 266 / 266 Weight 177 lb 179 lb 177 lb 4.767 oz 175 lb Microbiology Reports for the Last 24 Hours: Microbiology 11/30/22 16:03 Urine,Clean Catch Urine Culture - Final Staphylococcus aureus Narrative: Telemetry strip is sinus rhythm with a rate in the 70s. Echocardiogram shows: Moderate reduction in LV systolic function (LVEF 35%) Severe hypokinesis of the anterior, lateral, and anterolateral LV ventura. Mild RV dilation with moderate reduction in RV function Mild AI Mild MR Biatrial enlargement The patient is noted to be in atrial fibrillation during the acquisition of the study images. Constitutional Constitutional: no acute distress and obese *Routine HEENT Exam Head: Present normocephalic and atraumatic ENT: Present mucous membranes moist *Routine Neck Exam Neck: Present supple, full ROM and normal carotid upstroke; Absent JVD, carotid bruit or lymphadenopathy *Routine Respiratory Exam Respiratory: Present CTA bilaterally, normal respiratory effort, able to speak in complete sentences and symmetric chest movement *Routine Cardiovascular Exam Cardiovascular: Present RRR, Normal S1 and Normal S2; Absent murmur or gallop *Routine Abdominal Exam Abdominal: Present soft and normoactive bowel sounds; Absent tenderness, distended or organomegal
--- NOTE | 2022-12-04 10:44 | PC.NURSE ---
pt back to 219 from stress test, pt sitting in chair, family at bedside, call light within reach
--- NOTE | 2022-12-04 12:14 | PC.NURSE ---
Addendum entered by Zelda Lujan RN 12/04/22 12:17: HR 70 at this time, bp 137/91 (110) Original Note: stopped amio drip per order from BRYN Vásquez with cardiology
--- NOTE | 2022-12-04 13:28 | EXP.DC.SUM ---
General Admission date:: 11/30/22 Discharge date: 12/04/22 HPI HPI HPI: Ms. Girard is a 82 year old female with a past medical history of atrial fibrillation, hypertension and obesity who presented to the ED with 1 week of shortness of breath. In the ER she was found to be in afib with RVR with HR 150-170. Cardizem drip was started but then changed to Amiodarone drip after Cardiology was contacted. Her Business Objects Consultant is Dr. Arpit Rose at [facility]. She was taking both metoprolol and diltiazem but two weeks ago her diltiazem was discontinued and the dose of her metoprolol was not changed. She states that her Xarelto was discontinued 2 days ago because she had hemorrhoidal bleeding. She denies cough, chest pain, palpitations, lightheadedness, blurry vision, fever, chills, abdominal pain, nausea, vomiting and dysuria. Hospital Course Hospital Course Hospital Course: Mrs. Harmon is an 82 year old female with a past medical history of atrial fibrillation, hypertension and obesity who presented to the ED with 1 week of shortness of breath. In the ER she was found to be in afib with RVR with HR 150-170. Cardizem drip was started but then changed to Amiodarone drip after Cardiology was contacted. Her Business Objects Consultant is Dr. Arpit Rose at [facility]. She was taking both metoprolol and diltiazem but two weeks ago her diltiazem was discontinued and the dose of her metoprolol was not changed. She states that her Xarelto was discontinued 2 days prior to admission because she had hemorrhoidal bleeding. Hospital course was complicated by CHF exacerbation; she has no history of CHF. McLees improved. Stress test today showing fixed deficits. Stable in sinus rhythm after cardioversion on 12/03 for over 24 hours. Clinically stable for discharge home. Continue medical management as below. Problems addressed as follows: A-fib with RVR New diagnosis of heart failure with reduced ejection fraction Pulmonary edema -Cardiology consulted, appreciate their recommendations. Patient initially on diltiazem drip. Given A-fib with RVR, SKY and cardioversion performed. Patient noted to have reduced ejection fraction however in the 30 to 35% range. Taken for stress test showing fixed deficits in the anterior, lateral, anterior lateral LV ventura. Transitioned from diltiazem because of her heart failure to amiodarone for rate and rhythm control. We will continue amiodarone on discharge. Plan for 400 mg twice daily for 2 weeks, decrease to 200 mg twice daily for 2 more weeks with ultimate goal of 200 mg daily. Plan to continue metoprolol 100 mg daily. Initiated on high intensity statin with Lipitor 40 mg daily. Plan to continue losartan, Jardiance, Lasix, spironolactone for hypertension and CHF. Patient previously had some hemorrhoidal bleeding. Treated with Eliquis during admission. Resume Xarelto at discharge. Will need to be on Xarelto daily for at least 1 month after cardioversion. Further management pending stability of heart rate. Close follow-up with cardiology. Of note, patient's Lexiscan Myoview stress test on 12/04 showed fixed defect in anterior lateral wall consistent with abnormal echo. No reversible ischemia. No plan for invasive left heart cath at this time. Holding on aspirin at this time given recent bleeding hemorrhoids and recommendation of Xarelto daily. Hypokalemia: Potassium normalized with repletion. Maintained in stable range. Repeat labs with CMP in 1 week or cardiology follow-up to evaluate for possible need of potassium repletion in the outpatient setting. UTI: Urine culture on admission growing staph species. Transition to doxycycline to complete 5-day course. Extensive discussion about findings today on tests. Discussion on change in medications. Spent 35 minutes in discharge counseling, documentation, chart review, and direct care with patient. Exam Data for Last 24 hours Vital signs and Labs for Last 24 Hours: Temp
--- NOTE | 2022-12-04 14:07 | PC.NURSE ---
removed pt's IV's and took pt off tele monitor, pt's helping get dressed, awaiting appointments to be made and then will start discharge paperwork
--- NOTE | 2022-12-05 11:07 | CARE MANAGER ---
Spoke with patient related to hospital discharge. She states she is doing fair. She denies any questions or concerns. Has her follow up appointments written down and has her medications. VALERIA Russell
== END 2022-12-04 14:48 | disposition home or self-care (01) | DRG 291 ==
LOC: ER 09:07 → 2ND 09:21
PROVIDERS: Internal Medicine; Nurse Practitioner Critical Care Medicine; Nurse Practitioner Family; Admitting Provider Internal Medicine; Emergency Provider Emergency Medicine; PCP Nurse Practitioner Family; Visit Provider Internal Medicine
DX: I11.0 Hypertensive heart disease with heart failure (principal); I50.23 Acute on chronic systolic (congestive) heart failure; N39.0 Urinary tract infection, site not specified; I48.0 Paroxysmal atrial fibrillation; I42.9 Cardiomyopathy, unspecified; E66.9 Obesity, unspecified; Z68.34 Body mass index [BMI] 34.0-34.9, adult; E78.5 Hyperlipidemia, unspecified; E87.6 Hypokalemia; B95.8 Unspecified staphylococcus as the cause of diseases classified elsewhere
CPT/HCPCS: 36415; 71045; 71275; 78452; 80048; 80053; 80061; 80076; 81001; 82803; 83605; 83735; 83880; 84484; 85025; 87040; 87086; 87088; 87186; 87636; 93005; 93017; 93306; 93312; 94760; 99291; A9502; J0282; J0696; J2785; J7060; Q9967

== ENCOUNTER → 2022-12-25 10:00 | Outpatient (CLI) | payer MEDICARE, BC, SELFPAY ==
[2022-12-25 10:43] LABS: Basophils # 0.1 K/mm3 (0-0.2); Basophils % 0.6 % (0.1-2.0); Eosinophils # 0.2 K/mm3 (0.0-0.4); Eosinophils % 2.1 % (0.1-12.0); Lymphocytes # 1.9 K/mm3 (0.7-4.5); Lymphocytes % 22.8 % (10-50); Mean Corpuscular HGB Conc 31.1 g/dL (31.8-35.4); Mean Corpuscular Hemoglobin 27.7 pg (27.0-31.2); Mean Corpuscular Volume 89.1 fl (81-99); Mean Platelet Volume 8.3 fl (7.4-10.4); Monocytes # 0.6 K/mm3 (0.1-1.0); Monocytes % 6.9 % (1.7-9.3); Neutrophils # 5.6 K/mm3 (1.8-7.8); Neutrophils % 67.6 % (37.0-80.0); Platelet Count 233 K/mm3 (142-424); Red Blood Count 4.71 M/mm3 (4.20-5.40); White Blood Count 8.3 K/mm3 (4.8-10.8)
[2022-12-25 11:26] LABS: Free T4 (Free Thyroxine) 1.24 ng/dl (0.78-2.19)
[2022-12-25 13:30] LABS: Alanine Aminotransferase 27 U/L (12-78); Albumin Level 4.2 g/dl (3.5-5.0); Alkaline Phosphatase 106 U/L (38-126); Anion Gap 15.5 mEq/L (5-15); Aspartate Amino Transferase 28 U/L (14-36); Bilirubin,Direct 0.1 mg/dl (0.0-0.4); Bilirubin,Indirect 0.4 mg/dL (0.0-0.9); Bilirubin,Total 0.5 mg/dl (0.2-1.3); Bilirubin,Unconjugated 0.4 mg/dL (0.0-1.1); Blood Urea Nitrogen 22 mg/dl (7-17); Calcium 9.1 mg/dl (8.4-10.2); Carbon Dioxide 25 mmol/L (22.0-30.0); Chloride 102 mmol/L (98-107); Estimated Glomerular Filt Rate 48 ml/min (>60); GFR (African American) 58 ML/MIN (>60); Glucose 123 mg/dl (74-100); Potassium 3.5 mmoL/L (3.5-5.1); Sodium 139 mmol/L (136-145); Total Protein,Serum 7.3 g/dl (6.3-8.2)
[2022-12-25 14:03] LABS: Thyroid Stimulating Hormone 4.47 uIU/mL (0.465-4.68)
== END ==
PROVIDERS: PCP Nurse Practitioner Family; Visit Provider Internal Medicine
DX: E78.5 Hyperlipidemia, unspecified (principal); I10 Essential (primary) hypertension; I48.0 Paroxysmal atrial fibrillation; I50.20 Unspecified systolic (congestive) heart failure; R06.00 Dyspnea, unspecified; I63.9 Cerebral infarction, unspecified; E11.9 Type 2 diabetes mellitus without complications; I42.8 Other cardiomyopathies
CPT/HCPCS: 36415; 80048; 80076; 84439; 84443; 85025

== ENCOUNTER → 2023-03-12 07:45 | Outpatient (CLI) | payer MEDICARE, BC, SELFPAY ==
--- NOTE | 2023-03-12 07:49 | CA_ITS ---
APPROVED REPORT EXAM: Comprehensive 2D, Doppler, and color-flow Echocardiogram Manager Account Management: Lizett Moreira CRT Ht: 4 ft 11 in Wt: 177lbs BSA: 1.75 BP: 143/71 mmHg Indications: EF CHECK EF 35% 12/03/22 SKY W/CARDIOVERSION M-Mode Dimensions RVDd 2.58 cm (0.9-2.6) LA Diam 3.01 cm (1.9-4.0) LVDd 5.11 cm (3.5-5.7) LVDs 3.58 cm (3.5-5.7) IVSd 1.86 cm (0.6-1.1) PWd 0.72 cm (0.6-1.1) EF (Teich) 56.80% FS 29.90% EDV (Teich) 124.40 mL ESV (Teich) 53.70 mL Other Information Study Quality: Fair Conclusion This is a limited TTE to evaluate for LVEF. Limited windows were obtained. The left ventricle is normal in size. There is normal LV systolic function. No regional wall motion abnormalities are noted. LVEF is 55%. Compared to prior study from 11/2022, the LVEF is now normalized. Electronically signed by : Allyson Garcia MD 03/19/2023 10:22:38
[2023-03-12 11:02] LABS: Basophils # 0.1 K/mm3 (0-0.2); Basophils % 0.5 % (0.1-2.0); Eosinophils # 0.1 K/mm3 (0.0-0.4); Eosinophils % 1.3 % (0.1-12.0); Hematocrit 44.5 % (37.0-47.0); Hemoglobin 14.6 g/dL (12.2-16.2); Lymphocytes # 1.7 K/mm3 (0.7-4.5); Lymphocytes % 16.9 % (10-50); Mean Corpuscular HGB Conc 32.8 g/dL (31.8-35.4); Mean Corpuscular Hemoglobin 28.4 pg (27.0-31.2); Mean Corpuscular Volume 86.5 fl (81-99); Monocytes # 0.8 K/mm3 (0.1-1.0); Monocytes % 7.6 % (1.7-9.3); Neutrophils # 7.6 K/mm3 (1.8-7.8); Neutrophils % 73.8 % (37.0-80.0); Platelet Count 233 K/mm3 (142-424); Red Blood Count 5.14 M/mm3 (4.20-5.40); Red Cell Distribution Width 15.2 % (11.5-17.5); White Blood Count 10.4 K/mm3 (4.8-10.8)
[2023-03-12 11:19] LABS: Potassium 4.3 mmoL/L (3.5-5.1)
[2023-03-12 11:21] LABS: Alanine Aminotransferase 34 U/L (12-78); Albumin Level 4.4 g/dl (3.5-5.0); Alkaline Phosphatase 170 U/L (38-126); Anion Gap 11.3 mEq/L (5-15); Aspartate Amino Transferase 33 U/L (14-36); Bilirubin,Direct 0.3 mg/dl (0.0-0.4); Bilirubin,Indirect 0.3 mg/dL (0.0-0.9); Bilirubin,Total 0.6 mg/dl (0.2-1.3); Bilirubin,Unconjugated 0.3 mg/dL (0.0-1.1); Blood Urea Nitrogen 22 mg/dl (7-17); Calcium 9.1 mg/dl (8.4-10.2); Carbon Dioxide 27 mmol/L (22.0-30.0); Chloride 105 mmol/L (98-107); Cholesterol 118 mg/dl (140-200); Estimated Glomerular Filt Rate 60 ml/min (>60); GFR (African American) 73 ML/MIN (>60); Glucose 110 mg/dl (74-100); Sodium 139 mmol/L (136-145); Total Protein,Serum 7.6 g/dl (6.3-8.2); Triglycerides 134 mg/dl (30-150); VLDL Cholesterol 27 mg/dL (0-40)
[2023-03-12 11:22] LABS: Chol/HDL Ratio 3.7 (1-3.5); HDL Cholesterol 32 mg/dl (40-60); Magnesium 2.2 mg/dl (1.6-2.3)
[2023-03-12 11:26] LABS: Free T4 (Free Thyroxine) 1.29 ng/dl (0.78-2.19)
[2023-03-12 11:33] LABS: Direct LDL Cholesterol 70.12 mg/dL (100-129)
[2023-03-12 13:24] LABS: Thyroid Stimulating Hormone 2.98 uIU/mL (0.465-4.68)
== END ==
PROVIDERS: PCP Nurse Practitioner Family; Visit Provider Internal Medicine
DX: E78.5 Hyperlipidemia, unspecified (principal); I10 Essential (primary) hypertension; I48.0 Paroxysmal atrial fibrillation; I50.20 Unspecified systolic (congestive) heart failure; I42.8 Other cardiomyopathies
CPT/HCPCS: 36415; 80048; 80061; 80076; 83735; 84439; 84443; 85025; 93308

== ENCOUNTER → 2023-03-18 11:28 | Outpatient (CLI) | payer MEDICARE, BC, SELFPAY | PROVIDERS: PCP Nurse Practitioner Family; Visit Provider Nurse Practitioner Family | DX: R05.9 Cough, unspecified (principal); R49.0 Dysphonia | CPT/HCPCS: 87070; 87635 ==

== ENCOUNTER 2023-05-05 17:00 | Outpatient (CLI) | payer MEDICARE, BC, SELFPAY ==
[2023-05-05 17:47] LABS: Alanine Aminotransferase 32 U/L (12-78); Albumin Level 4.2 g/dl (3.5-5.0); Albumin/Globulin Ratio 1.4 (1.1-1.8); Alkaline Phosphatase 136 U/L (38-126); Anion Gap 14.6 mEq/L (5-15); Aspartate Amino Transferase 31 U/L (14-36); Bilirubin,Total 0.4 mg/dl (0.2-1.3); Blood Urea Nitrogen 18 mg/dl (7-17); Calcium 9.4 mg/dl (8.4-10.2); Carbon Dioxide 26 mmol/L (22.0-30.0); Chloride 101 mmol/L (98-107); Estimated Glomerular Filt Rate 48 ml/min (>60); GFR (African American) 58 ML/MIN (>60); Globulin 3.1 g/dL (1.3-3.2); Glucose 104 mg/dl (74-100); Potassium 4.6 mmoL/L (3.5-5.1); Sodium 137 mmol/L (136-145); Total Protein,Serum 7.3 g/dl (6.3-8.2)
[2023-05-05 18:20] LABS: Thyroid Stimulating Hormone 3.54 uIU/mL (0.465-4.68)
== END 2023-05-05 23:59 ==
LOC: LAB.DROPOF 17:01
PROVIDERS: PCP Nurse Practitioner Family; Visit Provider Nurse Practitioner Family
DX: I48.91 Unspecified atrial fibrillation (principal); I50.20 Unspecified systolic (congestive) heart failure; Z79.899 Other long term (current) drug therapy
CPT/HCPCS: 80053; 84443

== ENCOUNTER 2023-06-02 09:00 | Outpatient (CLI) | payer MEDICARE, BC, SELFPAY ==
--- NOTE | 2023-06-02 09:00 | CT_ITS ---
FINAL REPORT TECHNIQUE: Pre-and postcontrast images of the abdomen were performed by computed tomography. Extensive 3-D reconstruction images were performed. A CTA was performed. This study was performed with techniques to keep radiation doses as low as reasonably achievable (ALARA). Individualized dose reduction techniques using automated exposure control or adjustment of mA and/or kV according to the patient''s size were employed. CLINICAL HISTORY: johan/malignant htn FINDINGS: ABDOMEN: Mild atelectasis is seen at the lung bases. There is mild gallbladder wall thickening with a small gallstone present. Precontrast images demonstrate no evidence of nephrolithiasis. There is a less than 1 cm left renal cyst. No adrenal masses are identified. The liver, spleen and pancreas are unremarkable. CTA: The abdominal aorta is proper caliber. There are moderate to severe vascular calcifications. Celiac axis is unremarkable. Calcification is seen at the origin of the SMA with mild stenosis. The JARVIS is patent. There is less than 50% proximal right renal artery stenosis. Heavily calcified plaque is seen in the left renal artery origin with at least moderate stenosis of approximately 50%. There is no significant stenosis or calcification. The renal arteries are patent bilaterally. IMPRESSION: Less than 50% stenosis of the proximal right renal artery. Moderate stenosis of the left renal artery origin of at least 50%. Reviewed, Interpreted and Dictated by Corey Panda III, MD Transcribed by Michelle Farmer Authenticated and . [facility]
[2023-06-02] MEDS: IOPAMIDOL-370 (76%);100ML BOTTLE 100 ML IV (09:40)
[2023-06-02] MEDS: 0.9 % SODIUM CHLORIDE 50 ML VIAL IV (09:40)
[2023-06-02] MEDS: SODIUM CHLORIDE 0.9% 10ML SYR (RAD ONLY) 10 ML IV (09:40)
== END 2023-06-02 23:59 ==
LOC: RAD 09:00
PROVIDERS: PCP Nurse Practitioner Family; Visit Provider Physician Assistant
DX: I10 Essential (primary) hypertension (principal); I70.1 Atherosclerosis of renal artery
CPT/HCPCS: 74175; Q9967

== ENCOUNTER 2023-07-01 09:01 | Outpatient (CLI) | payer MEDICARE, BC, SELFPAY ==
--- NOTE | 2023-07-01 09:02 | CA_ITS ---
APPROVED REPORT EXAM: Comprehensive 2D, Doppler, and color-flow Echocardiogram Paedodontist: Lizett Moreira CRT Ht: 5 ft 0 in Wt: 167lbs BSA: 1.73 BP: 160/60 mmHg Indications: Atrial Fibrillation, Hyperlipidemia, Cardiomyopathy, Hypertension/HDD, ef 35% 9-2-23 2D Dimensions LA Volume 40.80 mL LA Volume Index 23.10 mL/m2 (M/F) 16-34 M-Mode Dimensions RVDd 2.90 cm (0.9-2.6) LA Diam 4.15 cm (1.9-4.0) LVDd 4.34 cm (3.5-5.7) LVDs 2.66 cm (3.5-5.7) IVSd 1.57 cm (0.6-1.1) PWd 1.25 cm (0.6-1.1) EF (Teich) 69.40% FS 38.70% EDV (Teich) 84.90 mL TAPSE 1.98 (<1.7) ESV (Teich) 26.00 mL LV Diastology MED A' 6.80 cm/s LAT A' 8.00 cm/s Aortic Valve MARGE Index 1.37 cm2/m2 AoV Peak Alirio. 172.0 (50-130 cm/s) AI PHT 496.00 ms AO Peak GR. 11.80 mmHg AO Mean GR. 6.40 (<5 mmHg) AO VTI 34.9 (18-25 cm) MARGE (VTI) 2.43 (2.5-4.5 cm2) Pulmonary Valve PV Peak Velocity 107.0 (50-150 cm/s) Tricuspid Valve TR P. Velocity 172.00 cm/s RAP Estimate 10.00 mmHg RVSP 21.80 mmHg Left Ventricle The left ventricle is normal size. The left ventricular systolic function is normal. The left ventricular ejection fraction is within the normal range. There is increased LV wall thickness. There is normal LV segmental wall motion. The left ventricular diastolic function is normal. LVEF is 55%. Right Ventricle The right ventricle is normal size. The right ventricular systolic function is normal. Atria The left atrium size is mildly dilated. The right atrium size is normal. There is no Doppler evidence of interatrial shunt. Aortic Valve The aortic valve is mildly thickened. There is no aortic valvular stenosis. Mild aortic regurgitation. Mitral Valve The mitral valve leaflets are mildly thickened. No evidence of mitral valve stenosis. Trace mitral regurgitation. Tricuspid Valve The tricuspid valve leaflets Trace tricuspid regurgitation. There is insufficient TR jet to estimate RVSP. Pulmonic Valve The pulmonary valve is normal in structure. Trace pulmonic regurgitation. Great Vessels The aortic root is normal in size. Ascending aorta is not well-visualized. IVC is normal in size and collapses >50% with inspiration. Pericardium There is no pericardial effusion. Other Information Study Quality: Fair Conclusion Normal biventricular systolic function. Mild LA dilation. Mild AI. Compared to prior full TTE exam from 12/03/2022, the LV and RV size and function have normalized. Electronically signed by : Allyson Garcia MD 07/02/2023 10:34:02
== END 2023-07-01 23:59 ==
LOC: RT 09:02
PROVIDERS: PCP Nurse Practitioner Family; Visit Provider Internal Medicine
DX: I50.20 Unspecified systolic (congestive) heart failure (principal); I48.0 Paroxysmal atrial fibrillation
CPT/HCPCS: 93306

== ENCOUNTER 2024-01-16 10:04 | Emergency (ER) | payer MEDICARE, BC, SELFPAY ==
[2024-01-16 10:04] VITALS: RESP 0; O2SAT 0; BMI 40.3
--- NOTE | 2024-01-16 10:10 | HMH.EDGENADL ---
Discharge Plan Disposition Patient Disposition: Date/Time: 01/16/24 12:00 Clinical Impressions Clinical Impression: Cardiac arrest Discharge ED Provider: Tod Gallegos Adult HPI General Chief complaint: Cardiac Arrest/CPR Stated complaint: code Time Seen by Provider: 01/16/24 10:10 History of Present Illness HPI narrative: Patient presents with unresponsiveness, last known normal yesterday evening. CPR initiated by EMS. Fingerstick blood sugar prior to arrival with hyperglycemia to 140s. Epinephrine x 1 administered prior to arrival. Patient has not had any shockable rhythm or organized cardiac activity prior to arrival. Please note that above description of symptoms, in this electronic medical record under categorization of recalled from ER triage doctor by RN are reflective of an initial nursing assessment, however, is not reflective of my full history and physical exam that was personally taken and clarified. Consequentially, this preceding description of symptoms, which may include the patient's categorized chief complaint in the EMR, do not reflect my personal clinical impression, and the ultimate description of history of present illness and patient stated complaints should be deferred to this section of the note. Unless stated otherwise or congruent with this section of the note, additional signs, symptoms, or incongruence should be interpreted as inaccurate with my clinical impression. Related Data Home Medications ?Medication ?Instructions ?Recorded ?Confirmed amiodarone 100 mg tablet 100 mg PO DAILY 01/29/23 09/04/23 Bacillus coagulans 250 million 25,000,000 cell PO DAILY 03/18/23 09/04/23 cell chewable tablet (Probiotic (B. coagulans)) zinc acetate 25 mg (zinc) capsule 50 mg PO DAILY 04/01/23 09/04/23 Previous Rx's ?Medication ?Instructions ?Recorded atorvastatin 40 mg tablet 40 mg PO HS 90 days #90 tabs 12/17/22 empagliflozin 10 mg tablet 10 mg PO DAILY 90 days #90 tabs 12/17/22 (Jardiance) rivaroxaban 20 mg tablet (Xarelto) 20 mg PO DAILY 90 days #90 tabs 12/17/22 hydrocortisone acetate 25 mg 25 mg AR BID PRN hemorrhoids #12 ea 01/29/23 rectal suppository (Anusol-HC) losartan 50 mg tablet 50 mg PO DAILY 90 days #90 tabs 05/05/23 spironolactone 25 mg tablet 25 mg PO DAILY 90 days #90 tabs 05/05/23 promethazine 25 mg tablet 25 mg PO Q6H PRN nausea and 05/19/23 vomiting #20 tabs metoprolol succinate 100 mg 100 mg PO DAILY heart rate #90 tabs 09/04/23 tablet,extended release 24 hr metoprolol succinate 100 mg 100 mg PO DAILY #30 tabs 09/17/23 tablet,extended release 24 hr hydrocortisone 2.5 % topical cream 1 applic AR TID PRN hemorrhoids 12/12/23 with perineal applicator #30 grams (Procto-Med HC) furosemide 40 mg tablet 40 mg PO DAILY 90 days #90 tabs 12/29/23 isosorbide mononitrate 30 mg 30 mg PO DAILY #30 tabs 12/29/23 tablet,extended release 24 hr Allergies Allergy/AdvReac Type Severity Reaction Status Date / Time No Known Allergies Allergy Verified 09/04/23 13:10 [facility] Disclaimer: The information contained in this section may have been updated after the patient was seen, as this information can be updated by other users. Medical History Malignant essential hypertension Renal artery stenosis HFrEF (heart failure with reduced ejection fraction) Cardiomyopathy Paroxysmal atrial fibrillation Acute pulmonary edema History of left heart catheterization (LHC) Colon cancer Hyperlipidemia Hypertension Afib Surgical History Hx of cataract surgery H/O: hysterectomy History of colon surgery Social History Smoking Status: Unknown if ever smoked alcohol intake: never substance use type: denies use current occupational status: retired Travel in the last 8 weeks: None Other Medical History Have you received the Flu Vaccine for this season: No Have you received the Pneumonia Vaccine: Yes ROS Obtained: Yes other As per HPI Physical Exam General General appearance: other (Unresponsive) Comment: Unresponsive, cold, rigid, dusky Head Head exam: atraumatic Chest Chest inspection: Present normal inspection and symmetric chest wall rise Respiratory Respiratory exam: Present normal lung sounds bilaterally; Absent respiratory distress Cardiovascular Cardiovascular exam: Present regular rate and normal rhythm Abdominal Exam Abdominal exam: Present soft Neurological Exam Neurological exam: Present other (Unresponsive) Medical Decision Making Medical Records Medical records reviewed: Yes I reviewed the patient's medical records. Screening: Per USPSTF and CDC recommendations, given the prevalence of disease in our region, it is our hospital?s policy to screen for HIV and viral Hepatitis for all patients aged 18 and over and those with ongoing risk factors. Luis Fernando Inquiry Pt receiving controlled substance: No Vital Signs: 01/16/24 10:04 01/16/24 12:00 Temperature 0 F L Pulse Rate 0 L Respiratory Rate 0 L 0 L Blood Pressure 0/0 L 02 Sat by Pulse Oximetry 0 L Medical Decision Narrative: Patient presents following cardiac arrest. Patient appears to be in rigor mortis, dusky, with no perfusable rhythm and unwitnessed arrest with last known normal several hours prior to arrival. 1 round of CPR was performed, patient was given 1 mg of epinephrine, bicarb, D50. I suspect patient arrested several hours prior to arrival. No pulses or cardiac activity was detected. Patient was declared in the emergency department. Critical Care Critical Care Time Critical Care Time: Yes Attestation: On 01/16/24, the high probability of a clinically significant, sudden or life threatening deterioration of the following system(s) required my full and direct attention, intervention and personal management. The time I documented below is in addition to time spent performing reported procedures but includes the following listed in this critical care notation. Total Time Total Critical Care Time: 20
--- NOTE | 2024-01-16 10:46 | PC.NURSE ---
0955 PT ARRIVES VIA EMS, CPR IN PROGRESS 0955 18 LAC PER EMS 0956 PULSE CHECK, NO PULSE, RESUME CPR 0957 EPI 0957 FSBS 40 0958 D50 GIVEN 0959 BICARB GIVEN 0959, PULSE CHECK, TOD 1001 SAS PROGRAMMER ANALYST NOTIFIED
--- NOTE | 2024-01-16 11:35 | PC.NURSE ---
SHANTELLE CONTACTED, PT RULED OUT D/T AGE PER ANNA PATTON CASE [id number]
--- NOTE | 2024-01-16 11:36 | PC.NURSE ---
TRANSPORTATION LEAD NOTIFIED OF SHANTELLE RULE OUT
[2024-01-16 12:00] VITALS: BP 0/0; PULSE 0; RESP 0; TEMP -17.7; TEMP 0; O2SAT 0
== END 2024-01-16 12:00 | disposition expired ==
PROVIDERS: Emergency Provider Emergency Medicine
DX: I46.9 Cardiac arrest, cause unspecified (principal)
CPT/HCPCS: 92950; 99285